=== PATIENT | male | born 1975 | race Caucasian/White ===

== ENCOUNTER 2017-01-13 13:27 | Day surgery (SDC) | payer OTHER ==
[2017-01-07 14:01] VITALS: BMI 32.3
[~2017-01-13 13:27] MED LIST: ceFAZolin 1,000 MG in SODIUM CHLORIDE 0.9% IRRIGATIO 250 ML IRRIGATION ONE; ceFAZolin IN SWFI 2 GM/20 ML SYRINGE IVP ONE
[2017-01-13] MEDS: SODIUM CHLORIDE 0.9% 1,000 ML IV SCH (13:50)
[2017-01-13] MEDS ORDERED: MIDAZOLAM 2 MG/2 ML VIAL ONE (16:43)
[2017-01-13] MEDS ORDERED: MIDAZOLAM 2 MG/2 ML VIAL IV ONE (16:46)
[2017-01-13] MEDS ORDERED: LIDOCAINE 1% INJ 10MG/ML (20 ML MDV) SQ ONE ×2 (16:48→17:13)
[2017-01-13] MEDS ORDERED: fentaNYL (PF) 50 MCG/ML 2 ML AMP ONE (16:48)
[2017-01-13] MEDS ORDERED: fentaNYL (PF) 50 MCG/ML 2 ML AMP IV ONE (16:49)
[2017-01-13] MEDS: LIDOCAINE 1% INJ 10MG/ML (20 ML MDV) SQ ONE ×2 (17:00→17:09)
[2017-01-13] MEDS ORDERED: ACETAMINOPHEN TAB 325 MG TAB PO PRN (17:44)
--- NOTE | 2017-01-13 18:02 | P.PCN ---
Preoperative Diagnosis: Patient underwent EP procedure under conscious sedation/moderate sedation, monitoring of the level of consciousness and physiologic parameters including but not limited to vital signs and oxygenation. Patient tolerated the procedure well without any acute complications. Start time: 1646 Stop time: 1740
--- NOTE | 2017-01-13 18:12 | PCN ---
PROCEDURE NOTE Mr. Arambula is a 41-year-old male patient who has a dual-chamber pacemaker implanted almost 11 years back for sick sinus syndrome, recurrent syncope. His device is at [facility] and he underwent dual chamber pacemaker generator change. DESCRIPTION OF PROCEDURE: Patient brought to the EP lab in a fasting state. Written informed consent was obtained prior to the procedure. The left shoulder area was prepped and draped as per protocol. 1% lidocaine was used for local anesthesia. A 3 cm incision was made parallel to the deltopectoral groove, about 1.5 cm medial to it. The incision was carried down to the level of the pectoralis muscle. A subfascial pocket was made. Hemostasis was assured. The pocket was fairly subcutaneous and new subfascial pocket was made more caudally and inferiorly. The device was explanted. The new device was implanted and the leads were interrogated. The atrial lead is a CapSureFix novus, model #5076 serial number [id number], P waves were 6.1 mV, pacing threshold 0.5 V at 0.4 milliseconds. Pacing impedance of 437 ohms. The RV lead is a Medtronic CapSureFix novus model #5076 serial number [id number]. R- waves 20 mV, pacing threshold 1 V at 0.4 milliseconds. Pacing impedance 491 ohms. The old generator explanted was a Medtronic model number A3534NC serial number [id number]. The new generator was a [employer], [address] model number L101 serial #[id number]. The leads and generator were then placed in the subfascial pocket. The wound was closed in 3 layers and dressed per protocol. RESULTS: 1. Successful dual chamber pacemaker generator change. 2. New subfascial pocket. The previous pocket was subcutaneous and very close to the clavicle. The new subfascial pocket was at the fascia level and it was well below the clavicle, more caudally located. MMODL / IJN: [id number] /
[2017-01-13] MEDS ORDERED: ACETAMINOPHEN IV (For NPO) 1,000 MG in EMPTY BAG 1 BAG IVPB ONE (18:30)
[2017-01-13] MEDS: PANTOPRAZOLE 40 MG TABLET PO SCH (19:08)
[2017-01-13] MEDS: ceFAZolin IN SWFI 2 GM/20 ML SYRINGE IVP SCH (21:36)
[2017-01-14] MEDS: HYDROcodone/APAP 5-325MG 1 EACH TAB PO PRN ×3 (04:45→13:53)
[2017-01-14] MEDS: ceFAZolin IN SWFI 2 GM/20 ML SYRINGE IVP SCH ×3 (04:45→16:31)
[2017-01-14 07:49] VITALS: RESP 18
[2017-01-14] MEDS: PANTOPRAZOLE 40 MG TABLET PO SCH (09:12)
[2017-01-14] MEDS: SODIUM CHLORIDE 0.9% 1,000 ML IV SCH (09:17)
[2017-01-14 12:05] VITALS: PULSE 56
[2017-01-14 15:21] VITALS: BP 118/67; TEMP 97.4
--- NOTE | 2017-01-14 18:26 | P.DS ---
Providers Attending physician: Fredi Calvillo Primary care physician: [facility] Course: Patient is doing well. Receiving IV antibiotics. No chest discomfort no shortness of breath. Lying comfortably in bed as well as ambulating in the room. Pacemaker site is healed well no bruising no hematoma no bleeding. Afebrile 97.4F, pulse rate in the 50s, respirations normal, blood pressure 118/ 67 mmHg Heart sounds are normal Breath sounds are normal Extremities warm no edema Impression Sick sinus syndrome Status post pacemaker implantation 11 years back, device with normal battery depletion status post pacemaker generator change yesterday Plan discharge home after completion of IV antibiotics and pacemaker clinic follow-up in about 1 week Patient Condition at Discharge: Stable Plan - Discharge Summary Discharge Rx Participant: Yes New Discharge Prescriptions: Continue RX: Omeprazole [PriLOSEC] 20 mg PO BID Discharge Medication List RX: Omeprazole [PriLOSEC] 20 mg PO BID 02/13/16 [History] Follow up Appointment(s)/Referral(s): Fredi Calvillo MD [STAFF PHYSICIAN] - 1 Week (Appointment made with device clinic for Friday @ 9:00am.) Patient Instructions/Handouts: Pacemaker Generator Change (DC) Activity/Diet/Wound Care/Special Instructions: PATIENT EDUCATION MATERIAL Instructions following a heart rhythm device implant. 1. Keep dressing DRY for ONE week. You may cover the area with Saran or Cling Wrap, prior to a shower. 2. The dressing will be removed after one week in the Device Clinic @ [facility]. Absorbable sutures were used to close the wound. 3. Avoid raising the [left] arm above the shoulder level. [1 week restriction] 4. Avoid arm movements, like backscratching, rubbing the head, or pulling on a cord. (1 weeks restriction) 5. Gentle range of motion movements of the shoulder, closest to the incision should be performed to avoid a frozen shoulder. (Pendulum exercises of the shoulder) 6. The opposite arm may be used freely. 7. Avoid driving for 7 days. 8. Avoid activities such as golfing, swimming, weed whacking, lifting more than 10 pounds weight, bowling, gymnastics and weight training/lifting. (6 weeks restriction) 9. Activities such as wood chopping with an axe, pull-ups in the gymnasium, power lifting, arc-welding, being close to home induction cooktops will always be a problem. In case of any problems, please call [facility], [place], @ [phone], Attention: Device Clinic Discharge Disposition: HOME SELF-CARE
== END 2017-01-14 16:50 | disposition home or self-care (01) ==
LOC: CATHEP 13:27 → 3OBS 17:48 → CATHEP 01-14 16:50
PROVIDERS: ATTEND Internal Medicine Clinical Cardiac Electrophysiology
DX: I49.5 Sick sinus syndrome (principal); Z45.010 Encounter for checking and testing of cardiac pacemaker pulse generator [battery]; R55 Syncope and collapse; F17.210 Nicotine dependence, cigarettes, uncomplicated; Z79.899 Other long term (current) drug therapy
CPT/HCPCS: 33228; C1785; J2250; J0690 ×3; J2001; J3010

== ENCOUNTER 2017-05-17 11:44 | Emergency (ER) | payer OTHER ==
[2017-05-17] MEDS ORDERED: PROPARACAINE 0.5% OPHTH DROPS 15 ML BTL BOTH EYES STA (12:20)
--- NOTE | 2017-05-17 12:21 | ED ---
General Adult HPI - General Chief complaint: Eye Problems Stated complaint: FB in eye Time Seen by Provider: 05/17/17 12:11 Source: patient, RN notes reviewed Mode of arrival: ambulatory Limitations: no limitations - History of Present Illness Initial comments: 41-year-old male presents to the emergency department for a chief complaint of right eye pain. Patient states he noticed it felt irritated and scratched this morning. Patient states he was working on a car with his friend last night and it possibly happened at that time. Patient states he applied a new bumper to her car. There was no rust on the bumper. He did not remove the old bumper. Patient went to [facility] today but they told him they could not remove it and he needed to come to the emergency department. Patient states he has no visual changes. Patient denies seeing any black spots in his vision. Patient denies any pain within the globe of the eye. He states it feels scratched. He tried to flush it out with contact solution but it would not dislodge. Patient states his tetanus is up-to-date and he had a shot in the past year. - Related Data Home Medications Medication Instructions Recorded Confirmed methylPREDNISolone [Medrol Dose See Taper PO DIRECTED 05/17/17 05/17/17 Pack] Previous Rx's Medication Instructions Recorded Tobramycin 0.3% Ophth Soln [Tobrex 1 drop RIGHT EYE Q6H 7 Days ml 05/17/17 0.3% Ophth Soln] Allergies Allergy/AdvReac Type Severity Reaction Status Date / Time adhesive tape Allergy Rash/Hives Verified 05/17/17 12:35 Review of Systems ROS Statement: Those systems with pertinent positive or pertinent negative responses have been documented in the HPI. ROS Other: All systems not noted in ROS Statement are negative. Past Medical History Past Medical History: GERD/Reflux, Hypertension, Musculoskeletal Disorder, Osteoarthritis (OA) Additional Past Medical History / Comment(s): See Dr Calvillo's H&P, bradycardia. Hx-"broken back" pt states high bp d/t back pain per physicians. History of Any Multi-Drug Resistant Organisms: None Reported Past Surgical History: Cholecystectomy, Pacemaker, Tonsillectomy Past Anesthesia/Blood Transfusion Reactions: No Reported Reaction Type of Cardiac Device: Permanent Pacemaker Device Placement Date:: 10/30 Past Psychological History: No Psychological Hx Reported Smoking Status: Current every day smoker Past Alcohol Use History: Occasional Past Drug Use History: None Reported - Past Family History Father Family Medical History: Hypertension Mother Family Medical History: CVA/TIA, Diabetes Mellitus, Hypertension Additional Family Medical History / Comment(s): CABG. General Exam Limitations: no limitations General appearance: alert, in no apparent distress Head exam: Present: atraumatic, normocephalic, normal inspection Eye exam: Present: PERRL, EOMI, other (There is a small black foreign body at about 4:00 on the outer aspect of the cornea.). Absent: scleral icterus, conjunctival injection, nystagmus, periorbital swelling, periorbital tenderness ENT exam: Present: normal exam, mucous membranes moist, TM's normal bilaterally Respiratory exam: Present: normal lung sounds bilaterally. Absent: respiratory distress, wheezes, rales, rhonchi, stridor Cardiovascular Exam: Present: regular rate, normal rhythm, normal heart sounds. Absent: systolic murmur, diastolic murmur, rubs, gallop, clicks Course Vital Signs 05/17/17 11:45 Temperature 97.0 F L Pulse Rate 86 Respiratory 20 Rate Blood Pressure 131/80 O2 Sat by Pulse 99 Oximetry Medical Decision Making - Medical Decision Making 41-year-old male presents to the emergency department for foreign body in the right cornea. Patient states he noticed his eye felt scratched and irritated this morning. He states he was working on a car bumper last night and it may have been from that. Patient tried flushing the right eye with contact solution but the object did not dislodge. Patient states he went to [facility] but they told him to come here. On exam there is a small black foreign body at about 4:00 in the right cornea. No rust ring noted. On exam EOMI and PERRLA bilaterally. Patient denies any visual changes or pain in the eye. He states it just feels scratched and irritated. The eye was numbed with proparacaine. Fluorescein stain and Wood's lamp was used to visualize any abrasions in the eye. There was a small abrasion below the cornea on the conjunctiva. A sterile Q-tip was used to remove the foreign body. The eye was then rechecked with fluoroscein stain which was unchanged. No rust ring noted on exam after foreign body removal. Patient had no change in vision after the foreign body was removed. He states his eye does feel a little better. Visual acuity was performed and was 2020 in both eyes. Patient was started on Tobrex in the emergency department he was also given a prescription for Tobrex to continue for 5 days. He is not to wear contacts for 1 week. He will follow up with ophthalmology in one to 2 days and return to the emergency department if symptoms worsen. Disposition Clinical Impression: Corneal foreign body Disposition: HOME SELF-CARE Condition: Good Instructions: Eye Foreign Body (ED) Additional Instructions: Please follow up with ophthalmology in one to 2 days. Please use Tobrex eyedrops as directed for 5-7 days in the right eye. Please do not use contacts for 1 week. Return to the emergency department if symptoms worsen or vision begins to change. Prescriptions: Tobramycin 0.3% Ophth Soln [Tobrex 0.3% Ophth Soln] 1 drop RIGHT EYE Q6H 7 Days ml Referrals: Baldev eWsley MD [Primary Care Provider] - 1-2 days Zoë Paulino MD [STAFF PHYSICIAN] - 1-2 days Time of Disposition: 12:56
[2017-05-17] MEDS ORDERED: TOBRAMYCIN 0.3% OPHTH DROPS 5 ML BTL RIGHT EYE STA (12:43)
[2017-05-17 13:07] VITALS: BP 121/62; PULSE 62; RESP 15; TEMP 98
== END 2017-05-17 13:09 | disposition home or self-care (01) ==
LOC: EC 11:44
DX: T15.01XA Foreign body in cornea, right eye, initial encounter (principal); M19.90 Unspecified osteoarthritis, unspecified site; F17.200 Nicotine dependence, unspecified, uncomplicated; Z95.0 Presence of cardiac pacemaker; Z79.52 Long term (current) use of systemic steroids; Z91.048 Other nonmedicinal substance allergy status
CPT/HCPCS: 65220; 99283

== ENCOUNTER 2019-11-21 22:48 | Observation (INO) | payer OTHER ==
[2019-11-21] MEDS ORDERED: ASPIRIN 81 MG PO STA (22:59)
--- NOTE | 2019-11-21 22:59 | ED ---
Chest Pain HPI - General Chief Complaint: Chest Pain Stated Complaint: Chest Pain Time Seen by Provider: 11/21/19 22:58 Source: patient, family Mode of arrival: wheelchair Limitations: no limitations - History of Present Illness Initial Comments: Bryan is an obese 44-year-old male with a history of bradycardia who has a pacemaker in place. Patient presents the ER today for evaluation of headache and chest pain. Patient reports he's been experiencing a severe headache for 3 days duration. He states that today he developed retrosternal chest pain r adiating to the left shoulder. She reports numbness and tingling in his left hand with this. He does note that yesterday at work when he was having a headache he was also having tingling in his left hand but no chest pain. Patient denies any cardiac history but states he is being treated for hypertension. Denies any family history of early cardiac disease. Denies any recent fevers, chills, cough or shortness of breath. - Related Data Home Medications Medication Instructions Recorded Confirmed methylPREDNISolone [Medrol Dose See Taper PO DIRECTED 05/17/17 05/17/17 Pack] Previous Rx's Medication Instructions Recorded Tobramycin 0.3% Ophth Soln [Tobrex 1 drop RIGHT EYE Q6H 7 Days ml 05/17/17 0.3% Ophth Soln] Allergies Allergy/AdvReac Type Severity Reaction Status Date / Time adhesive tape Allergy Rash/Hives Verified 11/21/19 22:53 Review of Systems ROS Statement: Those systems with pertinent positive or pertinent negative responses have been documented in the HPI. ROS Other: All systems not noted in ROS Statement are negative. EKG Findings - EKG Comments: EKG Findings:: EKG was obtained due to complaint of chest pain, EKG obtained at 2305, rate is 59 rhythm is sinus bradycardia there is normal axis, normal intervals, OH 162, QRS 96, QTC [address] elevations or depressions evidence of acute ischemia, infarction or arrhythmia. Repeat EKG was obtained to change in patient's mental status, repeat EKG was obtained 2320, rate 60 rhythm is normal sinus there is normal axis, normal intervals, OH 146, QRS 100, QTC 422 there are no acute ST elevations or depressions no evidence of acute ischemia, infarction or arrhythmia. Past Medical History Past Medical History: GERD/Reflux, Hypertension, Musculoskeletal Disorder, Osteoarthritis (OA) Additional Past Medical History / Comment(s): See Dr Calvillo's H&P, bradycardia. Hx-"broken back" pt states high bp d/t back pain per physicians. History of Any Multi-Drug Resistant Organisms: None Reported Past Surgical History: Cholecystectomy, Pacemaker, Tonsillectomy Past Anesthesia/Blood Transfusion Reactions: No Reported Reaction Type of Cardiac Device: Permanent Pacemaker Device Placement Date:: 10/30 Past Psychological History: No Psychological Hx Reported Smoking Status: Current every day smoker Past Alcohol Use History: Occasional Past Drug Use History: None Reported - Past Family History Father Family Medical History: Hypertension Mother Family Medical History: CVA/TIA, Diabetes Mellitus, Hypertension Additional Family Medical History / Comment(s): CABG. General Exam - General Exam Comments Initial Comments: Physical Exam GENERAL: Patient is well-developed and well-nourished. Patient is nontoxic and well- hydrated and is in no distress. HENT: Normocephalic, Atraumatic. EYES: PERRL, EOMI PULMONARY: Hyperventilating Unlabored respirations. No audible rales rhonchi or wheezing was noted. CARDIOVASCULAR: There is a regular rate and rhythm without any murmurs gallops or rubs. ABDOMEN: Soft and nontender with normal bowel sounds. SKIN: Skin is clear with no lesions or rashes and otherwise unremarkable. : Deferred NEUROLOGIC: Patient is alert and oriented x3. Moving all extremities spontaneously MUSCULOSKELETAL: Normal extremities with adequate strength and full range of motion. No lower extremity swelling or edema. No calf tenderness. PSYCHIATRIC: Anxious Limitations: no limitations Course Vital Signs 11/21/19 11/21/19 11/21/19 22:49 23:17 23:32 Temperature 97.8 F Pulse Rate 65 58 L 56 L Respiratory 18 36 H 32 H Rate Blood Pressure 140/98 149/91 O2 Sat by Pulse 99 98 95 Oximetry 11/21/19 11/22/19 11/22/19 23:51 01:07 01:43 Temperature 98 F Pulse Rate 57 L 50 L 64 Respiratory 18 17 18 Rate Blood Pressure 165/96 141/86 129/76 O2 Sat by Pulse 99 96 97 Oximetry Chest Pain [facility] The patient was seen and evaluated, history is obtained from the patient and wi fe at bedside 44-year-old male with 3 days of headache and one day of retrosternal chest pain, patient took a full dose aspirin prior to arrival in the emergency department Physical exam is unremarkable however cardiac workup with CT imaging to evaluate for dissection was placed Shortly after my evaluation nursing staff called staff back to the room for patient being reportedly unresponsive, patient was laying in bed with his eyes closed. Upon my evaluation he would flicker his eyes and look to the right but had a strong pulse, good oxygen saturations normal vital sign. Patient will be transported to CT immediately After CT I reevaluated the patient reported feeling quite woozy and did not like the way the morphine made him feel stated that he didn't want take that again Labs and imaging were unremarkable EKGs were nonischemic CT angiogram of the chest head and neck were unremarkable I discussed with the patient and at bedside that there are no acute findings today however we will plan to admit the patient for further evaluation Disposition Clinical Impression: Chest pain Disposition: ADMITTED IP TO THIS HOSP Condition: Stable Is patient prescribed a controlled substance at d/c from ED?: No
[2019-11-21] MEDS ORDERED: MORPHINE SULFATE 4 MG/ML SYRINGE IVP STA (23:04)
[2019-11-21 23:24] LABS: Glucose,Whole Blood 97 mg/dL (75-99)
[2019-11-21 23:40] LABS: Basophils # (A) 0.1 k/uL (0-0.2); Basophils % (A) 1 %; Eosinophils # (A) 0.4 k/uL (0-0.7); Eosinophils % (A) 4 %; HCT 44.9 % (39.0-53.0); HGB 15.3 gm/dL (13.0-17.5); Lymphocytes # (A) 3.5 k/uL (1.0-4.8); Lymphocytes % (A) 36 %; MCH 31.3 pg (25.0-35.0); MCHC 34.1 g/dL (31.0-37.0); MCV 91.5 fL (80.0-100.0); Mean Platelet Volume 6.8; Monocytes # (A) 0.6 k/uL (0-1.0); Monocytes % (A) 6 %; Neutrophils # (A) 4.9 k/uL (1.3-7.7); Neutrophils % (A) 51 %; Platelet Count 199 k/uL (150-450); RBC 4.91 m/uL (4.30-5.90); RDW 12.2 % (11.5-15.5); WBC 9.7 k/uL (3.8-10.6)
[2019-11-21 23:48] LABS: INR 0.9 (<1.2); Partial Thromboplastin Time 23.4 sec (22.0-30.0); Prothrombin Time 9.5 sec (9.0-12.0)
[2019-11-21 23:49] LABS: ALT 28 U/L (4-49); AST 30 U/L (17-59); African American GFR (CKD) >90 (>60 ml/min/1.73 sqM); Alkaline Phosphatase 57 U/L (38-126); Anion Gap 5 mmol/L; Blood Urea Nitrogen 13 mg/dL (9-20); Calcium 9.4 mg/dL (8.4-10.2); Carbon Dioxide 23 mmol/L (22-30); Chloride 108 mmol/L (98-107); Glucose 88 mg/dL (74-99); Magnesium 1.9 mg/dL (1.6-2.3); Non-African American GFR(CKD) >90 (>60 ml/min/1.73 sqM); Potassium 4.1 mmol/L (3.5-5.1); Sodium 136 mmol/L (137-145); Total Bilirubin 0.4 mg/dL (0.2-1.3); Total Protein 6.5 g/dL (6.3-8.2)
--- NOTE | 2019-11-22 00:02 | CT ---
EXAMINATION TYPE: CT brain wo con DATE OF EXAM: 11/21/2019 COMPARISON: 12/18/2009 HISTORY: headache CT DLP: 1092.80 mGycm Automated exposure control for dose reduction was used. Ventricles have normal size. There is no mass effect nor midline shift. There is no sign of intracran ial hemorrhage. The calvarium is intact. There is no evidence of cerebral edema. IMPRESSION: Negative unenhanced head CT scan. No change.
--- NOTE | 2019-11-22 00:14 | CT ---
EXAMINATION TYPE: CT angio chest DATE OF EXAM: 11/21/2019 COMPARISON: None HISTORY: RANGEL CT DLP: 828.10 mGycm Automated exposure control for dose reduction was used. CONTRAST: Performed with IV Contrast, patient injected with 90 mL of Isovue 370. There are 3-D post processed images. There is some patchy subsegmental atelectasis in the posterior lung christensen. There is no pulmonary con solidation. There is no evidence of a pulmonary mass. Heart is borderline enlarged. There is no peric ardial effusion. There are no hilar masses. There is no mediastinal adenopathy. Thoracic aorta is intact. There is no aneurysm or dissection. There is normal contrast opacification of the pulmonary arteries. There are no filling defects. There is some spurring in the thoracic spine. I see no bony destructive process. Sternum is intact IMPRESSION: No evidence of pulmonary embolism. Mild subsegmental atelectasis.
--- NOTE | 2019-11-22 00:17 | CT ---
EXAMINATION TYPE: CODE STROKE: CTA head neck DATE OF EXAM: 11/21/2019 COMPARISON: None HISTORY: headache CT DLP: 889.30 mGycm Automated exposure control for dose reduction was used. CONTRAST: Performed with IV Contrast, patient injected with 65 mL of Isovue 370. There are 3-D post processed images. There is normal branching pattern of the great vessels on the aortic arch. There is bilateral arteria l flow in the subclavian arteries. There is arterial flow in the common internal and external carotid arteries. There is wide patency of the carotid artery bifurcations. There is minimal plaque at the l eft carotid artery bifurcation. There is no evidence of any significant arterial stenosis. There is b ilateral arterial flow in the vertebral arteries. Right vertebral artery is larger than the left. The re is no evidence of carotid or vertebral artery aneurysm or dissection. There is arterial flow in the vertebrobasilar artery system. There is arterial flow in the anterior m iddle and posterior cerebral arteries. There is normal contrast opacification of the venous sinuses. There is no evidence of intracranial aneurysm or neovascularity. There is no mass effect. I see no ev idence of intracranial arterial stenosis. IMPRESSION: Negative CT angiogram of the neck. Negative CT angiogram of the brain.
[2019-11-22] MEDS ORDERED: NITROGLYCERIN SL TABS 0.4 MG TAB SUBLINGUAL PRN (00:40)
[2019-11-22] MEDS ORDERED: IBUPROFEN 600 MG TAB PO STA (01:33)
--- NOTE | 2019-11-22 01:57 | P.HPIM ---
History of Present Illness H&P Date: 11/22/19 The patient is a 44-year-old male with a PMH of hypertension, sinus bradycardia status post pacemaker placement, chronic left arm weakness who presented to the ED with complaints of chest pain and dizziness. The history supplemented by his at the bedside. Patient reports that over the past 1-2 days, he has felt somewhat more lethargic and that at around 7 PM earlier today he developed some lightheadedness along with substernal sharp pressure with radiation to the left arm. The pain was 6 out of 10, with no clear alleviating or exacerbating features. He reports that the dizziness was brought on with standing up. The pain had resolved shortly after arrival to the emergency room. While in the emergency room, the patient had episodes where he was "unresponsive" as per the , lasting only a few seconds. The patient was laying in bed with his eyes open, not responding to verbal cues. The notes that the patient has had a long-standing history of similar episodes where he would space-out and his eyes would move erratically. Patient denied associated shaking, urinary incon tinence, bladder incontinence, or tongue biting during these episodes. The notes that the last time this occurred was roughly a month ago. The patient has never been diagnosed with seizure disorder, though has seen a neurologist in the past for chronic left hand numbness. She notes that after these episodes, the patient is often confused and lethargic. The patient also endorsed mild chronic shortness of breath which she attributes to his smoking and obesity. Denied cough, fever, chills, abdominal pain, nausea, vomiting, or diarrhea. In the emergency room a brain CT and a chest CTA were unremarkable with EKG showing sinus bradycardia at 59 bpm. laboratory evaluation was reviewed. Review of Systems Pertinent positives and negatives as discussed in HPI, a complete review of systems was performed and all other systems are negative. Past Medical History Past Medical History: GERD/Reflux, Hypertension, Musculoskeletal Disorder, Osteoarthritis (OA) Additional Past Medical History / Comment(s): See Dr Calvillo's H&P, bradycardia. Hx-"broken back" pt states high bp d/t back pain per physicians. History of Any Multi-Drug Resistant Organisms: None Reported Past Surgical History: Cholecystectomy, Pacemaker, Tonsillectomy Past Anesthesia/Blood Transfusion Reactions: No Reported Reaction Type of Cardiac Device: Permanent Pacemaker Device Placement Date:: 10/30 Past Psychological History: No Psychological Hx Reported Smoking Status: Current every day smoker Past Alcohol Use History: Occasional Past Drug Use History: None Reported - Past Family History Father Family Medical History: Hypertension Mother Family Medical History: CVA/TIA, Diabetes Mellitus, Hypertension Additional Family Medical History / Comment(s): CABG. Medications and Allergies Home Medications Medication Instructions Recorded Confirmed Type Tobramycin 0.3% Ophth Soln [Tobrex 1 drop RIGHT EYE Q6H 7 Days ml 05/17/17 Rx 0.3% Ophth Soln] methylPREDNISolone [Medrol Dose See Taper PO DIRECTED 05/17/17 05/17/17 History Pack] Allergies Allergy/AdvReac Type Severity Reaction Status Date / Time adhesive tape Allergy Rash/Hives Verified 11/21/19 22:53 Physical Exam Vitals: Vital Signs Temp Pulse Resp BP Pulse Ox 11/22/19 01:07 50 L 17 141/86 96 11/21/19 23:51 57 L 18 165/96 99 11/21/19 23:32 56 L 32 H 149/91 95 11/21/19 23:17 58 L 36 H 140/98 98 11/21/19 22:49 97.8 F 65 18 99 Intake and Output 11/21/19 11/21/19 11/22/19 14:59 22:59 06:59 Other: Weight 111.13 kg General: non toxic, no distress, appears at stated age, obese Derm: no unusual rashes/lesions no unusual ecchymoses, warm, dry Head: atraumatic, normocephalic, symmetric Eyes: EOMI, no lid lag, anicteric sclera, pupils equal round reactive to light ENT: Nose and ears atraumatic, no thrush, no pharyngeal erythema, no tongue bites Neck: No thyromegaly, no cervical lymphadenopathy, trachea midline, supple Mouth: no lip lesion, mucus membranes moist Cardiovascular: S1S2 reg, no murmur, positive posterior tibial pulse bilateral, no edema, capillary refill less than 2 seconds Lungs: CTA bilateral, no rhonchi, no rales , no accessory muscle use Abdominal: soft, nontender to palpation, no guarding, no appreciable organomegaly, normal bowel sounds Ext: no gross muscle atrophy, muscle strength 3+ of left upper extremity, strength 5 out of 5 elsewhere, no contractures, Neuro: CN II-XI grossly intact, diminished sensation to light touch on the left hand, finger to nose within normal limits, Psych: Alert, oriented, appropriate affect Results CBC & Chem 7: 11/21/19 23:15 11/21/19 23:21 Labs: Abnormal Lab Results - Last 24 Hours (Table) 11/21/19 Range/Units 23:21 Sodium 136 L (137-145) mmol/L Chloride 108 H (98-107) mmol/L Assessment and Plan Plan: Chest pain, rule out ACS -Cardiology consult -Trend troponin -Cardiac monitoring -Aspirin and statin -Interrogate pacemaker Episodes of unresponsiveness, possible seizure disorder -Neurology consult -Fall and seizure precautions -Urine toxicology screen -Patient reports that his left arm has been weak for several years -Neurochecks -Start Keppra with loading dose Hypertension -Continue home meds DVT prophylaxis -Heparin subq The patient is admitted with an anticipated less than 2 midnight stay for evaluation of chest pain CODE STATUS: Full Code Discussed with: Patient, Anticipated discharge date: 11/[address]: Home A total of 40 minutes was spent on the care of this complex patient more than 50% of the time was spent in counseling and care coordination.
[2019-11-22] MEDS ORDERED: ATORVASTATIN 80 MG TAB PO STA (01:58)
[2019-11-22 02:51] LABS: Amphetamine Screen,Urine Not Detected (NotDetected); Barbiturate Screen,Urine Not Detected (NotDetected); Benzodiazepines Screen,Urine Not Detected (NotDetected); Cocaine Screen,Urine Not Detected (NotDetected); Methadone Screen, Urine Not Detected (NotDetected); Opiate Screen,Urine Detected (NotDetected); Oxycodone Screen, Urine Not Detected (NotDetected); Phencyclidine Screen,Urine Not Detected (NotDetected); Tricyclic Antidepressant,Urine Not Detected (NotDetected); Urn Cannabinoid Scrn Not Detected (NotDetected)
[2019-11-22] MEDS ORDERED: levETIRAcetam IV 1,000 MG in SALINE 1 100ML.BAG IVPB STA (03:21)
[2019-11-22] MEDS: HEPARIN SODIUM,PORCINE 5,000 UNIT/ML 1 ML VIAL SQ SCH ×2 (08:23→17:37)
[2019-11-22] MEDS: levETIRAcetam 500 MG TAB PO SCH ×2 (08:23→20:46)
[2019-11-22] MEDS ORDERED: IBUPROFEN 600 MG TAB PO PRN (09:35)
--- NOTE | 2019-11-22 09:47 | P.CRDCN ---
History of Present Illness History of present illness: HISTORY OF PRESENTING ILLNESS This is a pleasant 44-year-old male past medical history significant for hypertension, sick sinus syndrome status post permanent pacemaker implantation [employer], neurocardiogenic syncope and chronic nicotine dependence. He follows in the office with Dr. Calvillo. We have been asked to see in consultation for chest pain. He presented to the emergency department with symptoms of headache that has been going on for 3 days. He states he also has numbness and tingling in the left hand and a sharp pain in the left precordial region at times. He has been experiencing syncopal unresponsive episodes over the previous 3 weeks. He states the first one happened 3 weeks ago his came home and found him unresponsive. He had 2 episodes similar since coming to the hospital once in the ER and once on the observation unit last night. According to the nursing staff his eyes are closed and he would only respond to sternal rub. The patient denies symptoms of dizziness or lightheadedness. He has no chest pain, shortness of breath or palpitations prior to these episodes or after he wakes up. He denies loss of bowel or bladder control. According to staff he has no tonic clonic seizure type activity. Most recent pacemaker interrogation May 2019 revealed normal DDD pacemaker function, no tachyarrhythmias noted. Telemetry tracings throughout hospitalization have been unremarkable. DIAGNOSTICS EKG reveals sinus bradycardia heart rate of 59. CT of the brain is negative. CTA is negative for pulmonary embolism. Thoracic aorta is intact with no aneurysm or dissection. CT angiogram of the neck and brain is negative. Laboratory reviewed, CBC unremarkable, sodium 136, potassium 4.1, creatinine 0.98, magnesium 1.9, cardiac enzymes negative 3, NT proBNP 59. Current cardiac medications include lisinopril 5 mg daily. Most recent stress test performed in the office June 2018 revealed no EKG evidence of ischemia. REVIEW OF SYSTEMS At the time of my exam: CONSTITUTIONAL: Denies fever or chills. CARDIOVASCULAR: Denies chest pain, shortness of breath, orthopnea, PND or palpitations. RESPIRATORY: Denies cough. GASTROINTESTINAL: Denies abdominal pain, diarrhea, constipation, nausea or vomiting. MUSCULOSKELETAL: Denies myalgias. NEUROLOGIC: Denies numbness, tingling or weakness. ENDOCRINE: Denies fatigue, weight change, polydipsia or polyurina. GENITOURINARY: Denies burning, hematuria or urgency with micturation. HEMATOLOGIC: Denies history of anemia or bleeding. PHYSICAL EXAMINATION Blood pressure 121/77 heart rate 51 afebrile and maintaining oxygen saturation on room air. CONSTITUTIONAL: No apparent distress. HEENT: Head is normocephalic. Pupils are equal, round. Sclerae anicteric. Mucous membranes of the mouth are moist. No JVD. No carotid bruit. CHEST EXAMINATION: Lungs are clear to auscultation. No chest wall tenderness is noted on palpation or with deep breathing. HEART EXAMINATION: Regular rate and rhythm. S1, S2 heard. No murmurs, gallops or rub. ABDOMEN: Soft, nontender. Positive bowel sounds. EXTREMITIES: 2+ peripheral pulses, no lower extremity edema and no calf tenderness. NEUROLOGIC EXAMINATION: Patient is awake, alert and oriented x3. ASSESSMENT Syncope Chest pain, atypical. An acute coronary event has been ruled out. No EKG evidence of ischemia. Hypertension Sick sinus syndrome status post permanent pacemaker implantation Chronic nicotine dependence PLAN An acute event has been ruled out. Neurology will evaluate the patient today for the possibility of seizures. He has been initiated on anti-seizure medications. Obtain 2D echocardiogram and doppler study to assess cardiac structure and function. Thank you kindly for this consultation. Nurse Practitioner note has been reviewed, I agree with a documented findings and plan of care. Patient was seen and examined. Past Medical History Past Medical History: GERD/Reflux, Hypertension, Musculoskeletal Disorder, Osteoarthritis (OA) Additional Past Medical History / Comment(s): See Dr Calvillo's H&P, bradycardia. Hx-"broken back" pt states high bp d/t back pain per physicians. History of Any Multi-Drug Resistant Organisms: None Reported Past Surgical History: Cholecystectomy, Pacemaker, Tonsillectomy Past Anesthesia/Blood Transfusion Reactions: No Reported Reaction Type of Cardiac Device: Permanent Pacemaker Device Placement Date:: 10/30 Past Psychological History: No Psychological Hx Reported Smoking Status: Current every day smoker Past Alcohol Use History: Occasional Past Drug Use History: None Reported - Past Family History Father Family Medical History: Hypertension Mother Family Medical History: CVA/TIA, Diabetes Mellitus, Hypertension Additional Family Medical History / Comment(s): CABG. Medications and Allergies Home Medications Medication Instructions Recorded Confirmed Type Ibuprofen [Motrin Ib] 200 - 600 mg PO HS PRN 11/22/19 11/22/19 History Ibuprofen [Motrin Ib] 800 mg PO QAM 11/22/19 11/22/19 History Omeprazole [PriLOSEC] 20 mg PO BID 11/22/19 11/22/19 History lisinopriL [Zestril] 5 mg PO DAILY 11/22/19 11/22/19 History Allergies Allergy/AdvReac Type Severity Reaction Status Date / Time adhesive tape Allergy Rash/Hives Verified 11/22/19 08:51 Physical Exam Vitals: Vital Signs Temp Pulse Pulse Resp BP BP Pulse Ox 11/22/19 02:44 97.7 F 46 L 17 135/86 96 11/22/19 01:43 98 F 64 18 129/76 97 11/22/19 01:07 50 L 17 141/86 96 11/21/19 23:51 57 L 18 165/96 99 11/21/19 23:32 56 L 32 H 149/91 95 11/21/19 23:17 58 L 36 H 140/98 98 11/21/19 22:49 97.8 F 65 18 99 Intake and Output 11/21/19 11/22/19 11/22/19 22:59 06:59 14:59 Other: Voiding Method Toilet Weight 111.13 kg 111.13 kg Results 11/21/19 23:15 11/21/19 23:21 Cardiac Enzymes 11/21/19 11/21/19 11/22/19 Range/Units 23:21 23:21 02:25 AST 30 (17-59) U/L Troponin I <0.012 <0.012 (0.000-0.034) ng/mL 11/22/19 Range/Units 05:55 AST (17-59) U/L Troponin I <0.012 (0.000-0.034) ng/mL Coagulation 11/21/19 Range/Units 23:21 PT 9.5 (9.0-12.0) sec APTT 23.4 (22.0-30.0) sec CBC 11/21/19 Range/Units 23:15 WBC 9.7 (3.8-10.6) k/uL RBC 4.91 (4.30-5.90) m/uL Hgb 15.3 (13.0-17.5) gm/dL Hct 44.9 (39.0-53.0) % Plt Count 199 (150-450) k/uL Comprehensive Metabolic Panel 11/21/19 Range/Units 23:21 Sodium 136 L (137-145) mmol/L Potassium 4.1 (3.5-5.1) mmol/L Chloride 108 H (98-107) mmol/L Carbon Dioxide 23 (22-30) mmol/L BUN 13 (9-20) mg/dL Creatinine 0.98 (0.66-1.25) mg/dL Glucose 88 (74-99) mg/dL Calcium 9.4 (8.4-10.2) mg/dL AST 30 (17-59) U/L ALT 28 (4-49) U/L Alkaline Phosphatase 57 (38-126) U/L Total Protein 6.5 (6.3-8.2) g/dL Albumin 4.0 (3.5-5.0) g/dL Current Medications Generic Name Dose Route Start Last Admin Trade Name Freq PRN Reason Stop Dose Admin Aspirin 325 mg 11/23/19 09:00 Aspirin 325 Mg Tab PO DAILY NOEL Atorvastatin Calcium 80 mg 11/22/19 21:00 Atorvastatin 80 Mg Tab PO HS NOEL Heparin Sodium (Porcine) 5,000 unit 11/22/19 08:00 Heparin Sodium,Porcine 5,000 Unit/Ml 1 Ml Vial SQ Q8HR NOEL Levetiracetam 500 mg 11/22/19 09:00 Levetiracetam 500 Mg Tab PO Q12HR NOEL Nitroglycerin 0.4 mg 11/22/19 00:40 Nitroglycerin Sl Tabs 0.4 Mg Tab SUBLINGUAL Q5M PRN Chest Pain Intake and Output 11/21/19 11/22/19 11/22/19 22:59 06:59 14:59 Other: Voiding Method Toilet Weight 111.13 kg 111.13 kg 11/21/19 23:15 11/21/19 23:21
--- NOTE | 2019-11-22 10:45 | ECHOF ---
Referral Reason:chest pain MEASUREMENTS -------- HEIGHT: 152.4 cm WEIGHT: 111.1 kg BP: RVIDd: 3.3 cm (< 3.3) IVSd: 1.2 cm (0.6 - 1.1) LVIDd: 4.1 cm (3.9 - 5.3) LVPWd: 1.4 cm (0.6 - 1.1) IVSs: 1.5 cm LVIDs: 3.0 cm LVPWs: 1.3 cm Ao Diam: 3.2 cm (2.0 - 3.7) AV Cusp: 1.9 cm (1.5 - 2.6) MV EXCURSION: 16.963 mm (> 18.000) MV EF SLOPE: 103 mm/s (70 - 150) EPSS: 0.4 cm MV E Yusef: 0.91 m/s MV DecT: 205 ms MV A Yusef: 0.68 m/s MV E/A Ratio: 1.33 RAP: 5.00 mmHg RVSP: 24.79 mmHg FINDINGS -------- Paced rhythm. This was a technically adequate study. The left ventricular size is normal. There is mild concentric left ventricular hypertrophy. Overa ll left ventricular systolic function is low-normal with, an EF between 50 - 55 %. Left ventricular fillimg pressure cannot be estimated due to paced rhythm. The right ventricle is normal in size. The left atrial size is normal. The right atrial size is normal. The aortic valve is trileaflet, and appears structurally normal. No aortic stenosis or regurgitation. Mild mitral regurgitation is present. No regurgitation noted Right ventricular systolic pressure is normal at < 35 mmHg. There is no pulmonic regurgitation present. The aortic root size is normal. There is no pericardial effusion. CONCLUSIONS -------- 1. This was a technically adequate study. 2. The left ventricular size is normal. 3. There is mild concentric left ventricular hypertrophy. 4. Overall left ventricular systolic function is low-normal with, an EF between 50 - 55 %. 5. Left ventricular fillimg pressure cannot be estimated due to paced rhythm. 6. The right ventricle is normal in size. 7. The left atrial size is normal. 8. The right atrial size is normal. 9. Mild mitral regurgitation is present. 10. No regurgitation noted 11. There is no pulmonic regurgitation present. 12. There is no pericardial effusion. SOFTWARE DESIGN MANAGER: Brittany Cervantes RDCS
--- NOTE | 2019-11-22 12:10 | P.CNNES ---
History of Present Illness Consult date: 11/22/19 Requesting physician: Anam Woodard Reason for Consult: suspected seizure History of Present Illness: This is a 44-year-old right-handed gentleman with medical history of bradycardia status post pacemaker, hypertension presented to the emergency department on 11/21/2019 for chest pain. According to the patient for last 3-4 days he's been having and new onset headache that is over the frontal parietal region bilaterally. He says the headaches are a throbbing headache, did then 5- 6/10 and that there would last about 45 hours usually only in the mornings. He did feel like he had some watery eyes bilaterally. He denies any radiation to the headache. He denies any photophobia, phonophobia or anything to be in a da rk quiet place. He has and one of the episodes and nausea but no vomiting. He denies any pain with moving of the eyes. Denies any rhinorrhea. Denies any fever. He said that yesterday around 3:00 in the morning his headache was about 12/10 and it was a throbbing headache a currently it's 10 over 10. He feels there is a bump on the right side of the head (right temporal region), feels its hard over the last 3-4 days. With these headaches there is no exacerbation or alleviating factor. He has been taken Motrin 200 mg about 8-12 pills per the last 3 days and he feels like minimally they help. For last 1-2 days the patient has felt somewhat more lethargic and around 7 PM the day on 11/21/2019 he developed lightheadedness along with substernal sharp pressure with radiation to the left arm. There is no clear alleviating or exacerbating features. He did have dizziness upon standing up. The pain resolved upon coming to the emergency department. While in the emergency department the patient had an episode where he was unresponsive at a per his and lasting few seconds. The patient was lying in bed with eyes open, not responding to verbal cues and his eyes would move erratically. Patient does not have any shaking of extremities associated with these episodes, urinary inc ontinence or bladder incontinence. Also there is no tongue biting with these episodes. Last episode prior to the ED episode was a month ago. He was never diagnosed with seizure. She does follow up with a neurologist regarding his chronic left hand numbness. Per the patient's nurse the patient had an episode of unresponsiveness overnight, unsure of the duration. The patient received IV Keppra 1 g dose at 3:21 am on 11/22/19. Then was started on Keppra standing dose of 500 mg every 12 hours by the primary team. Workup in the hospital consisted of: CT of the head which was reported as negative unenhanced head CT scan. I personally reviewed the CT of the head and I didn't see any acute ischemia or hemorrhage. There is no encephalomalacia that is appreciable. EKG was reported as sinus bradycardia. Ventricular rate of 59. 2-D echo was reported as left ventricular size is normal. Mild concentric left ventricular hypertrophy. Ejection fraction of 50-55%. Left atrial size is normal. Per the patient's 's patient has been having episodes of unresponsiveness for past 10-12 years. The patient stated that the prior to these unresponsive episodes she would have a headache and his eyes would wander around bilaterally. Then he would be unresponsive lasting few seconds to a few minutes. Last episode was about 2 weeks ago. During these episodes the patient is unresponsive. There is no jerking episodes there is no urinary bowel incontinence. There is no tongue bites. After the episode the patient regains consciousness quickly for the most part per his . The patient denies recall these episodes. Prior to that 2 weeks ago she feels like the last episode was long time and she can't remember given a year ago. She is not sure if the patient's having these episodes while he is asleep. He had EEG (years ago) at different hospital and the episode was captured on EEG but no seizure correlation. She thinks that the patient was started on antiepileptic drugs in the past, she doesn't recall what the name of the medication. And that she's not sure of these episodes help or not but she said that this was long time ago it's been years. Regarding the patient's history he said it was normal vaginal delivery at, [facility] and there is no complication. There is no family history of seizures. The patient does see a chiropractor for right shoulder pain and he had his neck cracked in the last couple weeks. Review of Systems Review of system: The 12 point system was reviewed and apparent positive and negative per HPI. Past Medical History Past Medical History: GERD/Reflux, Hypertension, Musculoskeletal Disorder, Osteoarthritis (OA) Additional Past Medical History / Comment(s): See Dr Calvillo's H&P, bradycardia. Hx-"broken back" pt states high bp d/t back pain per physicians. History of Any Multi-Drug Resistant Organisms: None Reported Past Surgical History: Cholecystectomy, Pacemaker, Tonsillectomy Past Anesthesia/Blood Transfusion Reactions: No Reported Reaction Type of Cardiac Device: Permanent Pacemaker Device Placement Date:: 10/30 Past Psychological History: No Psychological Hx Reported Smoking Status: Current every day smoker Past Alcohol Use History: Occasional Past Drug Use History: None Reported - Past Family History Father Family Medical History: Hypertension Mother Family Medical History: CVA/TIA, Diabetes Mellitus, Hypertension Additional Family Medical History / Comment(s): CABG. Medications and Allergies Home Medications Medication Instructions Recorded Confirmed Type Ibuprofen [Motrin Ib] 200 - 600 mg PO HS PRN 11/22/19 11/22/19 History Ibuprofen [Motrin Ib] 800 mg PO QAM 11/22/19 11/22/19 History Omeprazole [PriLOSEC] 20 mg PO BID 11/22/19 11/22/19 History lisinopriL [Zestril] 5 mg PO DAILY 11/22/19 11/22/19 History Allergies Allergy/AdvReac Type Severity Reaction Status Date / Time adhesive tape Allergy Rash/Hives Verified 11/22/19 08:51 Physical Examination - Vital Signs Vital Signs: Vital Signs Temp Pulse Pulse Resp BP BP Pulse Ox 11/22/19 08:17 97.9 F 51 L 14 121/77 95 11/22/19 02:44 97.7 F 46 L 17 135/86 96 11/22/19 01:43 98 F 64 18 129/76 97 11/22/19 01:07 50 L 17 141/86 96 11/21/19 23:51 57 L 18 165/96 99 11/21/19 23:32 56 L 32 H 149/91 95 11/21/19 23:17 58 L 36 H 140/98 98 11/21/19 22:49 97.8 F 65 18 99 Intake and Output 11/21/19 11/22/19 11/22/19 22:59 06:59 14:59 Other: Voiding Method Toilet Weight 111.13 kg 111.13 kg GENERAL: The patient is lying in bed and is in acute distress. HENT: Small circular, hard lesion over the right superior temporal region. CHEST: The heart rate is regular rate rhythm. No murmurs to auscultation. LUNG: Clear to auscultation bilaterally no wheezing noted throughout. Not labored breathing. ABDOMEN/GI: Bowel sounds present in all 4 quadrants. No tenderness to palpation throughout. NEUROLOGICAL: Higher mental function: The patient is awake, alert, oriented to self, place and time. Patient is following commands. No aphasia and no neglect. Cranial nerves: The pupils are round, equal and reactive to light and accommodation. Visual christensen are full to confrontation throughout. Extraocular movement is intact no nystagmus is noted. Facial sensation is normal to touch throughout. The facial strength is normal throughout. Hearing is normal bilaterally to hand rub. Tongue is midline and moved dayw-ei-ftar without any difficulty. No dysarthria is noted. Shoulder shrug is normal bilaterally. Motor: The strength is 5 over 5 throughout. Normal tone and bulk. Cerebellum: Normal finger to nose bilaterally. Sensation: Sensation is normal to touch throughout. Reflexes (right/left): 2+ throughout. Plantars are downgoing bilaterally. Results AST of 30, ALP of 28. Urine drug screen was positive for opiates. - Laboratory Findings CBC and BMP: 11/21/19 23:15 11/21/19 23:21 Abnormal Lab Findings: Abnormal Labs 11/21/19 11/22/19 23:21 02:33 Sodium 136 L Chloride 108 H Urine Opiates Screen Detected H Assessment and Plan Assessment: Chronic Episodes of unresponsiveness. Possible seizure. Cannot rule out cardiac etiology. Left hand weakness Cephalgia over the bilateral fronto-parietal region Small bump over the right temporal region Substernal left chest pain Chronic left hand numbness Hypertension Plan: Patient was started on Keppra 500 mg twice a day by the primary team and it's to be continued. I ordered routine EEG. If unable to capture these unresponsive episodes on the routine EEG then I would recommend long-term EEG as an outpatient. Per the patient's she said that the patient had a routine EEG many years back and and had an episode of unre sponsiveness while he had a routine EEG and and there were told that this didn't seem like a seizure. Patient never had long-term EEG in the past. Continue cardiac monitoring. CTA of head and neck were reported as unremarkable. Regarding MRI the brain if it's permissible I would like to get it within without contrast to rule out any lesions seen. Patient does have a pacemaker, so the will find out if it's compatible or not. I'll also check with our cardiology team determine whether it's compatible. Regarding the patient left hand weakness and he states that it's new episode this MRI of the brain will help us determine any lesion that would explain this. We'll defer management of the chest pain to the cardiology team. Upon discharge the patient needs to follow up with the neurology team as outpatient. The was discussed with the patient and his . Thank you for the consult. Je Bean M.D. Neuro-hospitalist Time with Patient: Greater than 30
[2019-11-22] MEDS: lisinopriL 5 MG TAB PO SCH (12:49)
[2019-11-22] MEDS: ACETAMINOPHEN TAB 325 MG TAB PO PRN ×2 (14:05→20:49)
[2019-11-22] MEDS ORDERED: NICOTINE POLACRILEX 2 MG GUM BUCCAL PRN (14:45)
--- NOTE | 2019-11-22 15:36 | P.PN ---
Subjective Progress Note Date: 11/22/19 Principal diagnosis: chest pain and dizziness Patient is a 44-year-old male for history of hypertension, GERD, bradycardia status post permanent pacemaker implantation, and chronic left arm weakness who presented to the emergency department with complaints of chest pain and dizzi ness. In the emergency department he underwent an extensive evaluation. His initial EKG showed sinus bradycardia at a rate of 59. CT of the head showed no acute process, CT angiogram of the neck and brain is negative, CTA of the chest showed no evidence of pulmonary embolism. He is admitted for stroke chest pain rule out. Troponin remained negative. At approximately 3 in the morning the patient had an episode of unresponsiveness witnessed by the nurse there was concern for Seizure. He Was Keppra Loaded and Started on Oral Keppra. He was seen by cardiology and underwent an echocardiogram which was essentially unremarkable and demonstrated an ejection fraction of 50-55%. He was seen by neurology who was concern for possible Janeth or and recommended EEG and possible long-term EEG as an outpatient. Unfortunately we are unable to obtain an MRI secondary to patient's permanent pacemaker. Patient seen and examined at bedside with present. He is feeling very tired, no chest pain, no shortness of breath. General: Non toxic, no distress, appears at stated age Derm: warm, dry Head: atraumatic, normocephalic, symmetric Eyes: EOMI, no lid lag, anicteric sclera Mouth: no lip lesion, mucus membranes moist Cardiovascular: S1S2 reg, no murmur, positive posterior tibial pulse bilateral, Lungs: CTA bilateral, no rhonchi, no rales , no accessory muscle use Abdominal: soft, nontender to palpation, no guarding, no appreciable organomegaly Ext: no gross muscle atrophy, no edema, no contractures Neuro: CN II-XI grossly intact, no focal neuro deficits Psych: Alert, oriented, appropriate affect Episode of unresponsiveness -Chronic and intermittent -Neurology recommendations, concern for possible seizure, if this EEG unrevealing then outpatient 24 hour EEG -Continue with Keppra -Await EEG -Outpatient neurology follow-up Chest pain -Acute coronary event ruled out -Echocardiogram with preserved ejection fraction and no signs of wall motion abnormalities -Cardiology recommendations appreciated -Outpatient follow-up with Dr. Rodriguez Hypertension, controlled -Controlled -Continue with lisinopril Tobacco abuse -Cessation -Nicotine replacement DVT prophylaxis: Heparin Discussed with: Patient, nursing Anticipated discharge: home Anticipated discharge place: in AM A total of 35 minutes was spent on the care of this complex patient more than 50% of the time was spent in counseling and care coordination. Objective - Vital Signs Vital signs: Vital Signs Temp 97.9 F 11/22/19 08:17 Pulse 51 L 11/22/19 08:17 Resp 14 11/22/19 08:17 BP 121/77 11/22/19 08:17 Pulse Ox 95 11/22/19 08:17 Intake & Output 11/21/19 11/22/19 11/22/19 18:59 06:59 18:59 Weight 111.13 kg Other: Voiding Method Toilet - Labs CBC & Chem 7: 11/21/19 23:15 11/21/19 23:21 Labs: Abnormal Lab Results - Last 24 Hours (Table) 11/21/19 11/22/19 Range/Units 23:21 02:33 Sodium 136 L (137-145) mmol/L Chloride 108 H (98-107) mmol/L Urine Opiates Screen Detected H (NotDetected)
--- NOTE | 2019-11-22 16:28 | EEG ---
ELECTROENCEPHALOGRAM REPORT DATE OF SERVICE: 11/22/2019 CLINICAL HISTORY: This is a 44-year-old gentleman with history of bradycardia, status post pacemaker that presented to the hospital because of chest pain. Patient also continues to have episodes of loss of consciousness for the past 10-12 years, and his most recent episode was during this hospital stay overnight today. This video EEG is obtained to evaluate for seizure and epileptiform activity. RELEVANT MEDICATION: The patient is on Keppra. EEG TYPE: A routine 21 channel EEG was performed with video using the 10-20 electrode placement system. DESCRIPTION: Wakefulness, drowsiness and stage 2 sleep are obtained. During wakefulness, there is a posterior dominant rhythm of low voltage that is well modulated of 9 to 9.5 hertz. Activity, symmetrically. During drowsiness, there is slowing and attenuation of the background activity. During stage 2 sleep, there are sleep spindles and K complexes. INTERICTAL AND ICTAL: None. ACTIVATION PROCEDURE: Photic stimulation did not evoke a posterior driving response. Hyperventilation was not performed because of the patient clinical history. CLINICAL INTERPRETATION: This is a normal routine awake, drowsy, and asleep EEG. There is no focal slowing, epileptiform discharges, or seizure activity during this routine EEG. Clinical correlation is recommended. MMODL / IJN: [id number] / SEAMUS
[2019-11-22] MEDS ORDERED: ATORVASTATIN 80 MG TAB PO SCH (21:00)
[2019-11-23] MEDS: HEPARIN SODIUM,PORCINE 5,000 UNIT/ML 1 ML VIAL SQ SCH ×2 (00:21→09:06)
[2019-11-23 03:06] LABS: Cholesterol 125 mg/dL (<200); HDL Cholesterol 28 mg/dL (40-60); LDL Cholesterol,Calculated 81 mg/dL (0-99); Triglycerides 78 mg/dL (<150)
[2019-11-23 08:03] VITALS: BP 118/77; PULSE 50; RESP 14; TEMP 97.4
[2019-11-23] MEDS ORDERED: ASPIRIN 325 MG TAB PO SCH (09:00)
[2019-11-23] MEDS: levETIRAcetam 500 MG TAB PO SCH (09:06)
[2019-11-23] MEDS: lisinopriL 5 MG TAB PO SCH (09:06)
--- NOTE | 2019-11-23 10:25 | P.PN ---
Subjective HISTORY OF PRESENTING ILLNESS This is a pleasant 44-year-old male past medical history significant for hypertension, sick sinus syndrome status post permanent pacemaker implantation [employer], neurocardiogenic syncope and chronic nicotine dependence. He follows in the office with Dr. Calvillo. He underwent an EEG yesterday that was unremarkable. He is seen and examined resting comfortably lying flat no acute distress. He denies any further symptoms of chest discomfort. Breathing is stable. Dizziness or palpitations. Echocardiogram obtained revealed preserved LV systolic function with EF 50-55%. Blood pressure 118/77 heart rate 50 afebrile and maintaining oxygen saturation on room air. Laboratory data reviewed, LDL 81 and LDL 28. PHYSICAL EXAMINATION CONSTITUTIONAL: No apparent distress. HEENT: Head is normocephalic. Pupils are equal, round. Sclerae anicteric. Mucous membranes of the mouth are moist. No JVD. No carotid bruit. CHEST EXAMINATION: Lungs are clear to auscultation. No chest wall tenderness is noted on palpation or with deep breathing. HEART EXAMINATION: Regular rate and rhythm. S1, S2 heard. No murmurs, gallops or rub. EXTREMITIES: 2+ peripheral pulses, no lower extremity edema and no calf tenderness. ASSESSMENT Syncope Chest pain, atypical. An acute coronary event has been ruled out. No EKG evidence of ischemia. Hypertension Sick sinus syndrome status post permanent pacemaker implantation Chronic nicotine dependence PLAN Discussed with the patient the need to do a stress test. He would prefer to have this done in the office with Dr. Calvillo. Considering he has been chest pain-free and an acute event has been ruled out that is a reasonable approach. Nurse Practitioner note has been reviewed, I agree with a documented findings and plan of care. Patient was seen and examined. Objective - Vital Signs Vital signs: Vital Signs Temp 97.4 F L 11/23/19 08:02 Pulse 50 L 11/23/19 08:02 Resp 14 11/23/19 08:02 BP 118/77 11/23/19 08:02 Pulse Ox 98 11/23/19 08:02 Intake & Output 11/22/19 11/23/19 11/23/19 18:59 06:59 18:59 Other: Voiding Method Toilet Toilet # Voids 1 1 - Labs CBC & Chem 7: 11/21/19 23:15 11/21/19 23:21 Labs: Abnormal Lab Results - Last 24 Hours (Table) 11/22/19 Range/Units 05:55 HDL Cholesterol 28 L (40-60) mg/dL
--- NOTE | 2019-11-23 20:04 | P.DS ---
Providers Date of admission: 11/22/19 00:40 Expected date of discharge: 11/23/19 Attending physician: Anam Woodard MD Consults: 11/22/19 00:40 Consult Physician Urgent Consulting Provider: [facility] Consult Reason/Comments: chest pain Do you want consulting provider notified?: Yes, Notify in am 11/22/19 03:21 Consult Physician Urgent Consulting Provider: Antonieta Macias Consult Reason/Comments: Suspected seizures Do you want consulting provider notified?: Yes Primary care physician: Baldev Hernandez [employer] Course: Discharge Diagnosis: Probable seizure, unresponsive episode Chest pain Hypertension Tobacco abuse History of bradycardia status post pacemaker Hospital Course: Patient is a 44-year-old male for history of hypertension, GERD, bradycardia status post permanent pacemaker implantation, and chronic left arm weakness who presented to the emergency department with complaints of chest pain and diz ziness. In the emergency department he underwent an extensive evaluation. His initial EKG showed sinus bradycardia at a rate of 59. CT of the head showed no acute process, CT angiogram of the neck and brain is negative, CTA of the chest showed no evidence of pulmonary embolism. He is admitted for stroke chest pain rule out. Troponin remained negative. At approximately 3 in the morning the ephraim jett had an episode of unresponsiveness witnessed by the nurse there was concern for Seizure. He Was Keppra Loaded and Started on Oral Keppra. He was seen by cardiology and underwent an echocardiogram which was essentially unremarkable and demonstrated an ejection fraction of 50-55%. He was seen by neurology who was concerned for possible seizure, they recommended continuing keppra and EEG which was negative, long-term EEG as an outpatient recommended. Unfortunately we are unable to obtain an MRI secondary to patient's permanent pacemaker. He did not have any additional episodes after starting his Keppra. He is determined stable for discharge. Initially cardiology had offered inpatient stress test secondary to his initial symptoms. However patient wished to follow-up with an outpatient. Currently the patient is within 60 miles additionally and [facility] He is informed of this by the top case assembler who has been in contact with [facility]. Patient was informed of no driving for 6 months, and to continue Keppra. Patient seen and examined at bedside. No chest pain, shortness breath, nausea, vomiting, or recurrent symptoms. Vital signs reviewed and stable. General: non toxic, no distress, appears at stated age Derm: warm, dry Head: atraumatic, normocephalic, symmetric Eyes: EOMI, no lid lag, anicteric sclera Mouth: no lip lesion, mucus membranes moist Cardiovascular: S1S2 reg, no murmur, positive posterior tibial pulse bilateral, Lungs: CTA bilateral, no rhonchi, no rales , no accessory muscle use Abdominal: soft, nontender to palpation, no guarding, no appreciable organomegaly Ext: no gross muscle atrophy, no edema, no contractures Neuro: CN II-XI grossly intact, no focal neuro deficits Psych: Alert, oriented, appropriate affect A total of 25 minutes of time were spent preparing this complex discharge summary . Patient Condition at Discharge: Stable Plan - Discharge Summary Discharge Rx Participant: No New Discharge Prescriptions: New levETIRAcetam [Keppra] 500 mg PO Q12HR #60 tab Ibuprofen [Motrin] 600 mg PO TID PRN tab PRN Reason: Pain Continue Omeprazole [PriLOSEC] 20 mg PO BID lisinopriL [Zestril] 5 mg PO DAILY Ibuprofen [Motrin Ib] 200 - 600 mg PO HS PRN PRN Reason: Pain Discontinued Ibuprofen [Motrin Ib] 800 mg PO QAM Discharge Medication List Ibuprofen [Motrin Ib] 200 - 600 mg PO HS PRN 11/22/19 [History] Omeprazole [PriLOSEC] 20 mg PO BID 11/22/19 [History] lisinopriL [Zestril] 5 mg PO DAILY 11/22/19 [History] Ibuprofen [Motrin] 600 mg PO TID PRN tab 11/23/19 [Rx] levETIRAcetam [Keppra] 500 mg PO Q12HR #60 tab 11/23/19 [Rx] Follow up Appointment(s)/Referral(s): Fredi Calvillo MD [STAFF PHYSICIAN] - 12/13/19 7:00 am Azam Arias MD [REFERRING] - As Needed (Internal Medicine if you prefer) Baldev Wesley MD [Primary Care Provider] - 1-2 days Stephanie Knutson MD [Medical Doctor] - 1 Week [facility],Clinic [REFERRING] - 1 Week Activity/Diet/Wound Care/Special Instructions: Activity: as tolerated Diet: Heart healthy Special Instructions: NO DRIVING for 6 months. Discharge Disposition: HOME SELF-CARE
== END 2019-11-23 11:50 | disposition home or self-care (01) ==
LOC: EC 22:48 → 3NCARDOBS 11-22 00:40
PROVIDERS: ADMIT Internal Medicine; ATTEND Internal Medicine
DX: R40.4 Transient alteration of awareness (principal); R07.9 Chest pain, unspecified; I10 Essential (primary) hypertension; R51 Headache; R20.2 Paresthesia of skin; R20.0 Anesthesia of skin; F17.200 Nicotine dependence, unspecified, uncomplicated; Z95.0 Presence of cardiac pacemaker; I51.7 Cardiomegaly; I49.5 Sick sinus syndrome; R53.1 Weakness; E66.9 Obesity, unspecified; Z68.35 Body mass index [BMI] 35.0-35.9, adult; Z79.899 Other long term (current) drug therapy; K21.9 Gastro-esophageal reflux disease without esophagitis; M19.90 Unspecified osteoarthritis, unspecified site; Z90.49 Acquired absence of other specified parts of digestive tract; Z82.49 Family history of ischemic heart disease and other diseases of the circulatory system; Z82.3 Family history of stroke; Z83.3 Family history of diabetes mellitus; Z91.09 Other allergy status, other than to drugs and biological substances; Z79.1 Long term (current) use of non-steroidal anti-inflammatories (NSAID)
CPT/HCPCS: 93005 ×3; 96365; 96372 ×2; 96375; 99285; 36415; 95819; 93306; 83880; 80061; 80053; 83690; 83735; 84484 ×2; 85025; 85610; 85730; 80306; 70496; 70450; 70498; 71275; G0378 ×2; J2270; J1644 ×2; J1953; Q9967

== ENCOUNTER 2023-04-07 15:58 | Inpatient (IN) | payer OTHER, BC ==
[2023-04-07 16:12] LABS: Glucose,Whole Blood 137 mg/dL (70-110)
--- NOTE | 2023-04-07 16:15 | ED ---
General Adult HPI - General Stated complaint: Stroke Time Seen by Provider: 04/07/23 16:01 Source: patient, RN notes reviewed, old records reviewed Mode of arrival: EMS Limitations: no limitations - History of Present Illness Initial comments: 7-year-old male presenting with syncopal episode, headache, slurred speech and left-sided weakness. Symptoms began at 1515. His speech is improved compared to what paramedics had initially indicated. He was noted to be weak on the left as well. He had a brief loss of consciousness during transportation. He has no prior history of CVA. - Related Data Home Medications Medication Instructions Recorded Confirmed Ibuprofen [Motrin Ib] 200 - 600 mg PO HS PRN 11/22/19 11/22/19 Omeprazole [PriLOSEC] 20 mg PO BID 11/22/19 11/22/19 lisinopriL [Zestril] 5 mg PO DAILY 11/22/19 11/22/19 Previous Rx's Medication Instructions Recorded Ibuprofen [Motrin] 600 mg PO TID PRN tab 11/23/19 levETIRAcetam [Keppra] 500 mg PO Q12HR #60 tab 11/23/19 Allergies Allergy/AdvReac Type Severity Reaction Status Date / Time adhesive tape Allergy Rash/Hives Verified 11/22/19 08:51 Review of Systems ROS Statement: Those systems with pertinent positive or pertinent negative responses have been documented in the HPI. ROS Other: All systems not noted in ROS Statement are negative. Past Medical History Past Medical History: GERD/Reflux, Hypertension, Musculoskeletal Disorder, Osteoarthritis (OA) Additional Past Medical History / Comment(s): See Dr Calvillo's H&P, bradycardia. Hx-"broken back" pt states high bp d/t back pain per physicians. History of Any Multi-Drug Resistant Organisms: None Reported Past Surgical History: Cholecystectomy, Pacemaker, Tonsillectomy Past Anesthesia/Blood Transfusion Reactions: No Reported Reaction Type of Cardiac Device: Permanent Pacemaker Device Placement Date:: 10/30 Past Psychological History: No Psychological Hx Reported Smoking Status: Current every day smoker Past Alcohol Use History: Occasional Past Drug Use History: None Reported - Past Family History Father Family Medical History: Hypertension Mother Family Medical History: CVA/TIA, Diabetes Mellitus, Hypertension Additional Family Medical History / Comment(s): CABG. General Exam Limitations: no limitations General appearance: alert, in no apparent distress Head exam: Present: atraumatic, normocephalic Eye exam: Present: normal appearance, PERRL ENT exam: Present: normal exam Neck exam: Present: normal inspection. Absent: tenderness, meningismus Respiratory exam: Present: normal lung sounds bilaterally. Absent: respiratory distress, wheezes Cardiovascular Exam: Present: regular rate, normal rhythm GI/Abdominal exam: Present: soft. Absent: distended, tenderness, guarding Extremities exam: Present: normal inspection, normal capillary refill. Absent: pedal edema Neurological exam: Present: alert, oriented X3, motor sensory deficit (Patient has left upper extremity drift, left upper extremity ataxia, left leg drift. Left facial droop, and speech is mildly dysarthric.), other (NIH of 9) Psychiatric exam: Present: normal affect, normal mood Skin exam: Present: warm, dry, intact. Absent: cyanosis, diaphoretic Course Vital Signs 04/07/23 04/07/23 04/07/23 16:04 16:29 16:55 Temperature 97 F L Pulse Rate 98 106 H 92 Respiratory 20 20 20 Rate Blood Pressure 139/86 152/90 140/89 O2 Sat by Pulse 93 L 94 L 96 Oximetry - Reevaluation(s) Reevaluation #1: 04/07/23 16:42 Dr. Quinn was able to review images and does agree that the patient is a candidate for tenecteplase. 04/07/23 1645 Tenecteplase administered. There was slight delay in administering this medication due to the possibility of ethan seizure activity at onset versus subtle seizure activity. And slight transient improvement in symptoms. Reevaluation #2: 04/07/23 17:05 Patient symptoms significantly improved. Medical Decision Making - Medical Decision Making Was pt. sent in by a medical professional or institution (, PA, CYTOGENETICIST, urgent c are, hospital, or skilled nursing...) When possible be specific @ -No Did you speak to anyone other than the patient for history (EMS, parent, family, police, friend...)? What history was obtained from this source @ -No Did you review nursing and triage notes (agree or disagree)? Why? @ -I reviewed and agree with nursing and triage notes Were old charts reviewed (outside hosp., previous admission, EMS record, old EKG, old radiological studies, urgent care reports/EKG's, skilled nursing records)? Report findings @ -No old charts were reviewed Differential Diagnosis (chest pain, altered mental status, abdominal pain women, abdominal pain men, vaginal bleeding, weakness, fever, dyspnea, syncope, headache, dizziness, GI bleed, back pain, seizure, CVA, palpatations, mental health, musculoskeletal)? @ -Differential CVA Ischemic stroke, hemorrhagic stroke, brain tumor, atypical migraine, Wernicke's encephalopathy, seizure, multiple sclerosis, meningitis, encephalitis, hypoglycemia, Guillain-Byers, electrolytes disturbance, myasthenia gravis.... This is not meant to be an all-inclusive list EKG interpreted by me (3pts min.). @Sinus rhythm rate of 91, CO interval 174, QRS duration 106, QTc [address] segment elevation. X-rays interpreted by me (1pt min.). @ -[Chest x-ray negative for acute cardiopulmonary disease. CT interpreted by me (1pt min.). @ -CT without contrast negative for intracranial hemorrhage. U/S interpreted by me (1pt. min.). @ -None done What testing was considered but not performed or refused? (CT, X-rays, U/S, labs)? Why? @ -None What meds were considered but not given or refused? Why? @ -None Did you discuss the management of the patient with other professionals (professionals i.e. , PA, CYTOGENETICIST, lab, RT, psych nurse, social media editor, clerk operator, teacher, campus safety officer, case management social worker)? Give summary @ -, Stroke team, Dr. Quinn, Dr. Be who will admit, and the route aide Dr. Quinones, and the neurologist Dr. Bean Was smoking cessation discussed for >3mins.? @ -No Was critical care preformed (if so, how long)? @ -Yes, 35 minutes Were there social determinants of health that impacted care today? How? (Homelessness, low income, unemployed, alcoholism, drug addiction, transportation, low edu. Level, literacy, decrease access to med. care, group home, rehab)? @ -No Was there de-escalation of care discussed even if they declined (Discuss DNR or withdrawal of care, Hospice)? DNR status @ -No What co-morbidities impacted this encounter? (DM, HTN, Smoking, COPD, CAD, Cancer, CVA, ARF, Chemo, Hep., AIDS, mental health diagnosis, sleep apnea, morbid obesity)? @ -[Hypertension, family history of CVA Was patient admitted / discharged? Hospital course, mention meds given and route, prescriptions, significant lab abnormalities, going to OR and other pertinent info. @47-year-old male presenting with strokelike symptoms. There was concern of possible seizure activity at onset. However this was not sustained and did not require treatment. There is persistent NIH of 9 throughout the patient's stay in the emergency department prior to administration of thrombolytics. The care was managed with the help of the stroke team. There was no absolute contraindications for tenecteplase and the patient was administered this medication with the consent of his . Additionally the patient was loaded with Keppra. He will be admitted to the ICU. Undiagnosed new problem with uncertain prognosis? @ -No Drug Therapy requiring intensive monitoring for toxicity (Heparin, Nitro, Insulin, Cardizem)? @ -No Were any procedures done? @ -No Diagnosis/symptom? @ -[CVA. Acute, or Chronic, or Acute on Chronic? @ -Acute Uncomplicated (without systemic symptoms) or Complicated (systemic symptoms)? @ -[Complicated Side effects of treatment? @ -[No Exacerbation, Progression, or Severe Exacerbation? @ -No Poses a threat to life or bodily function? How? (Chest pain, USA, OR, pneumonia, PE, COPD, DKA, ARF, appy, cholecystitis, CVA, Diverticulitis, Homicidal, Suicidal, threat to staff... and all critical care pts) @ -Yes, CVA - Lab Data Result diagrams: 04/07/23 16:06 04/07/23 16:06 Lab Results 04/07/23 04/07/23 04/07/23 Range/Units 16:06 16:06 16:06 WBC 15.7 H (3.8-10.6) k/uL RBC 5.22 (4.30-5.90) m/uL Hgb 17.0 (13.0-17.5) gm/dL Hct 49.4 (39.0-53.0) % MCV 94.6 (80.0-100.0) fL MCH 32.6 (25.0-35.0) pg MCHC 34.4 (31.0-37.0) g/dL RDW 12.4 (11.5-15.5) % Plt Count 189 (150-450) k/uL MPV 7.3 Neutrophils % 81 % Lymphocytes % 14 % Monocytes % 3 % Eosinophils % 1 % Basophils % 0 % Neutrophils # 12.7 H (1.3-7.7) k/uL Lymphocytes # 2.2 (1.0-4.8) k/uL Monocytes # 0.5 (0-1.0) k/uL Eosinophils # 0.2 (0-0.7) k/uL Basophils # 0.1 (0-0.2) k/uL PT 10.4 (10.0-12.5) sec INR 0.9 (<1.2) APTT 20.5 L (22.0-30.0) sec Sodium 138 (137-145) mmol/L Potassium 3.7 (3.5-5.1) mmol/L Chloride 108 H (98-107) mmol/L Carbon Dioxide 19 L (22-30) mmol/L Anion Gap 11 mmol/L BUN 11 (9-20) mg/dL Creatinine 0.93 (0.66-1.25) mg/dL Est GFR (CKD-EPI)AfAm >90 (>60 ml/min/1.73 sqM) Est GFR (CKD-EPI)NonAf >90 (>60 ml/min/1.73 sqM) Glucose 135 H (74-99) mg/dL POC Glucose (mg/dL) (70-110) mg/dL POC Glu Machine Rebuilder ID Calcium 10.1 (8.4-10.2) mg/dL Total Bilirubin 0.7 (0.2-1.3) mg/dL AST 27 (17-59) U/L ALT 31 (4-49) U/L Alkaline Phosphatase 72 (38-126) U/L Creatine Kinase 163 (55-170) U/L Troponin I (0.000-0.034) ng/mL Total Protein 7.0 (6.3-8.2) g/dL Albumin 4.2 (3.5-5.0) g/dL 04/07/23 04/07/23 Range/Units 16:06 16:09 WBC (3.8-10.6) k/uL RBC (4.30-5.90) m/uL Hgb (13.0-17.5) gm/dL Hct (39.0-53.0) % MCV (80.0-100.0) fL MCH (25.0-35.0) pg MCHC (31.0-37.0) g/dL RDW (11.5-15.5) % Plt Count (150-450) k/uL MPV Neutrophils % % Lymphocytes % % Monocytes % % Eosinophils % % Basophils % % Neutrophils # (1.3-7.7) k/uL Lymphocytes # (1.0-4.8) k/uL Monocytes # (0-1.0) k/uL Eosinophils # (0-0.7) k/uL Basophils # (0-0.2) k/uL PT (10.0-12.5) sec INR (<1.2) APTT (22.0-30.0) sec Sodium (137-145) mmol/L Potassium (3.5-5.1) mmol/L Chloride (98-107) mmol/L Carbon Dioxide (22-30) mmol/L Anion Gap mmol/L BUN (9-20) mg/dL Creatinine (0.66-1.25) mg/dL Est GFR (CKD-EPI)AfAm (>60 ml/min/1.73 sqM) Est GFR (CKD-EPI)NonAf (>60 ml/min/1.73 sqM) Glucose (74-99) mg/dL POC Glucose (mg/dL) 137 H (70-110) mg/dL POC Glu Machine Rebuilder ID Raymond Son Calcium (8.4-10.2) mg/dL Total Bilirubin (0.2-1.3) mg/dL AST (17-59) U/L ALT (4-49) U/L Alkaline Phosphatase (38-126) U/L Creatine Kinase (55-170) U/L Troponin I <0.012 (0.000-0.034) ng/mL Total Protein (6.3-8.2) g/dL Albumin (3.5-5.0) g/dL Critical Care Time Critical Care Time: Yes Total Critical Care Time: 35 Disposition Clinical Impression: Cerebrovascular accident (CVA) Disposition: ADMITTED IP TO THIS HOSP Condition: Serious Is patient prescribed a controlled substance at d/c from ED?: No Referrals: None,Stated [REFERRING] - 1-2 days Time of Disposition: 16:56
[2023-04-07 16:23] LABS: Basophils # (A) 0.1 k/uL (0-0.2); Basophils % (A) 0 %; Eosinophils # (A) 0.2 k/uL (0-0.7); Eosinophils % (A) 1 %; HCT 49.4 % (39.0-53.0); Lymphocytes # (A) 2.2 k/uL (1.0-4.8); Lymphocytes % (A) 14 %; MCH 32.6 pg (25.0-35.0); MCHC 34.4 g/dL (31.0-37.0); MCV 94.6 fL (80.0-100.0); Mean Platelet Volume 7.3; Monocytes # (A) 0.5 k/uL (0-1.0); Monocytes % (A) 3 %; Neutrophils # (A) 12.7 k/uL (1.3-7.7); Neutrophils % (A) 81 %; Platelet Count 189 k/uL (150-450); RBC 5.22 m/uL (4.30-5.90); RDW 12.4 % (11.5-15.5); WBC 15.7 k/uL (3.8-10.6)
--- NOTE | 2023-04-07 16:31 | CT ---
EXAMINATION TYPE: CT brain wo con DATE OF EXAM: 04/07/2023 COMPARISON: 11/21/2019 INDICATION: Neuro deficit, acute, stroke suspected. left sided weakness DLP: 1187.6 mGycm, Automated exposure control for dose reduction was used. CONTRAST: None CT of the brain is performed utilizing 3 mm thick sections through the posterior fossa and 3 mm thick sections through the remaining calvarium. Study is performed within 24 hours of arrival to the hosp ital. No abnormal hyperdensity is present to suggest an acute intracranial hemorrhage. No mass lesion is evident. No acute infarcts are evident. Ventricles and sulci are appropriate for the patient age. Paranasal sinuses and mastoid air cells within the [id number] are clear. IMPRESSION: 1. No acute intracranial process. Follow-up MRI can be performed as clinically indicated.
[2023-04-07 16:42] LABS: INR 0.9 (<1.2); Prothrombin Time 10.4 sec (10.0-12.5)
[2023-04-07] MEDS: SODIUM CHLORIDE 0.9% 1,000 ML IV STA (16:42)
[2023-04-07] MEDS: T.ENECTEPLASE 5 MG/ML VIAL IVP STA (16:44)
[2023-04-07 16:52] LABS: ALT 31 U/L (4-49); AST 27 U/L (17-59); African American GFR (CKD) >90 (>60 ml/min/1.73 sqM); Albumin 4.2 g/dL (3.5-5.0); Alkaline Phosphatase 72 U/L (38-126); Anion Gap 11 mmol/L; Blood Urea Nitrogen 11 mg/dL (9-20); Calcium 10.1 mg/dL (8.4-10.2); Carbon Dioxide 19 mmol/L (22-30); Chloride 108 mmol/L (98-107); Creatine Kinase 163 U/L (55-170); Glucose 135 mg/dL (74-99); Non-African American GFR(CKD) >90 (>60 ml/min/1.73 sqM); Potassium 3.7 mmol/L (3.5-5.1); Sodium 138 mmol/L (137-145); Total Bilirubin 0.7 mg/dL (0.2-1.3)
--- NOTE | 2023-04-07 16:54 | CT ---
EXAMINATION TYPE: CT angio head neck DATE OF EXAM: 04/07/2023 HISTORY: Neuro deficit, acute, stroke suspected. left sided weakness COMPARISON: None CT DLP: 1095.2 mGycm. Automated Exposure Control for Dose Reduction was Utilized. TECHNIQUE: CTA scan of the head and neck is performed with IV Contrast, patient injected with 65ml m L of Isovue 370, axial images are obtained, coronal and sagittal reformatted images are reviewed. 3D reconstructed images are created on an independent workstation and reviewed. FINDINGS: FINDINGS: The brachiocephalic origins are widely patent and no significant stenosis. There is no significant stenosis of the common or internal carotid arteries within the neck. There is no stenosis of the vertebral arteries. Intracranially, there is no stenosis, segmental occlusion, sizable aneurysm sac or vascular malformat ion. IMPRESSION:. No significant abnormality seen. NASCET criteria was used in interpretation of this exam?
[2023-04-07 16:56] LABS: Partial Thromboplastin Time 20.5 sec (22.0-30.0)
[2023-04-07] MEDS: levETIRAcetam IV 2,000 MG in SODIUM CHLORIDE 0.9% 250 ML IVPB ONE (17:12)
[2023-04-07] MEDS: ATORVASTATIN 80 MG TAB PO STA (17:18)
[2023-04-07] MEDS: SODIUM CHLORIDE 0.9% 1,000 ML IV SCH (17:39)
--- NOTE | 2023-04-07 17:56 | XR ---
EXAMINATION TYPE: XR chest 1V portable DATE OF EXAM: 04/07/2023 COMPARISON: NONE HISTORY: Syncopal episode TECHNIQUE: Single frontal view of the chest is obtained. FINDINGS: There is a 2-lead cardiac pacemaker. The heart and pulmonary vasculature are normal. There is no pleural effusion or pneumothorax. The lungs are clear of consolidative or interstitial opacity. The osseous structures are intact IMPRESSION: No acute cardiopulmonary disease.
[2023-04-07 17:57] LABS: Glucose,Whole Blood 171 mg/dL (70-110)
[2023-04-07] MEDS ORDERED: DEXTROSE 50% SYRINGE 50 ML IVP PRN ×2 (18:00)
--- NOTE | 2023-04-07 18:16 | P.HPIM ---
History of Present Illness H&P Date: 04/07/23 Patient is a 47-year-old male with known GERD, hypertension, bradycardia status post permanent pacemaker, and osteoarthritis who presented to the emergency department with complaints of syncopal episode, headache, slurred speech, and left-sided weakness. On arrival to the emergency department his NIH was 9. Initial vital signs were within normal limits. Laboratory analysis included CBC , coags, CMP, CK, and troponin which were remarkable for white blood cell count 15.7, carbon dioxide 19, and glucose of 135. CT brain showed no acute intracranial process. CTA of the head and neck demonstrated no significant abnormalities. Code stroke was activated. Dr. Ty to the emergency department physician spoke with neurointensivist who did recommend tenecteplase which was administered patient had resolution of symptoms within 90 seconds. Arrangements were made for admission to the ICU. Patient seen and examined at bedside with present in the emergency department. Story from him and his is that he called her this afternoon while driving stating he had a headache and felt lightheaded and was having difficulty seeing. She asked him to pull worker. The last thing he remembers is speaking with her and then waking up in the emergency department. reports that he called his boss and EMS was activated. He does not remember transport from EMS. On arrival to the ER he was noted to have slurred speech, pronator drift, and left-sided weakness. Currently he is headache free and feeling back to his normal self. He has chronic left upper extremity weakness after a back injury which is unchanged. His thinking is back to normal. He denies any recent cough, cold, fever, flu. He last had Dr. Calvillo on Friday and had his pacemaker interrogated. Patient was here in 2019 and was diagnosed with possible seizures. At that point in time he was started on Keppra. He [facility] They were never able to confirm the seizures but does continue to say "probable". They had him continue Keppra to see if it would help with his migraine headaches. He did not have any improvement in migraines and therefore was taken off of this medication. He reports that he has been inconsistent with taking his blood pressure medications and misses 2 to 3 days at a time. Vital signs reviewed General: nontoxic, no distress, appears at stated age Derm: warm, dry Eyes: EOMI, no lid lag, anicteric sclera, pupils equal round reactive to light ENT: Nose and ears atraumatic Cardiovascular: S1S2 reg, no murmur, no edema Lungs: clear to auscultation bilateral, no rhonchi, no rales, no wheeze, no accessory muscle use Abdominal: soft, nontender to palpation, no guarding Ext: no gross muscle atrophy, no contractures Neuro: Pupils equal round reactive to light, extraocular motion intact, no tongue deviation, palate elevation equal, shoulder shrug equal, decrease strength in pronation, supination, flexion and extension at elbow and abduction and abduction at shoulder on left upper extremity, right upper extremity is 5 out of 5 in all of these ranges of motion. Light touch intact bilateral face and all 4 extremities. Psych: Alert, oriented, appropriate affect Assessment/Plan: Episode of unresponsiveness associated with difficulty speaking and left sided facial droop and weakness. -Neurologic symptoms improved in ER after administration of TNK per emergency department physician -Admit to ICU -Possible etiologies do include stroke versus seizure with Chip's paralysis versus complex migraine versus pacemaker malfunction -Case discussed with neurology at length -Aspirin will be started 24 hours after TNK. Repeat head CT in 24 hours. Patient is not able to have MRI due to pacemaker -Lipitor 80 mg at night -Pacemaker interrogation, echocardiogram, telemetry -Seizure precautions. EEG in a.m. -Hold lisinopril and allow for 48 hours of permissive hypertension. Follow blood pressures. Treat only for systolic greater than 180 or having received TNK Sick sinus syndrome - s/p PPM GERD - Protonix 40 mg PO daily Nicotine dependence - nicotine patch 21 mcg daily, and nicotine gum 2 mg q 4 hours prn Hx of migraine SHIN Imaging: As per HPI Data Review: As per HPI The patient is admitted with an anticipated greater than 2 midnight stay for evaluation of uresponsive episode Surrogate decision-maker: CODE STATUS:Full DVT prophylaxis: SCDs Anticipated discharge date: Pending Clinical Course Anticipated discharge place: Pending Clinical Course This dictation was prepared using [employer] voice recognition software. Though every attempt is made to correct errors during dictation some may still exist. Past Medical History Past Medical History: GERD/Reflux, Hypertension, Musculoskeletal Disorder, Osteoarthritis (OA) Additional Past Medical History / Comment(s): sick sinus syndrome, chronic left arm weakness, migraine SHIN. Hx-"broken back" pt states high bp d/t back pain per physicians. History of Any Multi-Drug Resistant Organisms: None Reported Past Surgical History: Cholecystectomy, Pacemaker, Tonsillectomy Past Anesthesia/Blood Transfusion Reactions: No Reported Reaction Type of Cardiac Device: Permanent Pacemaker Device Placement Date:: 10/30 Past Psychological History: No Psychological Hx Reported Smoking Status: Current every day smoker Past Alcohol Use History: Occasional Past Drug Use History: None Reported - Past Family History Father Family Medical History: Hypertension Mother Family Medical History: CVA/TIA, Diabetes Mellitus, Hypertension Additional Family Medical History / Comment(s): CABG. Medications and Allergies Home Medications Medication Instructions Recorded Confirmed Type Omeprazole Magnesium [PriLOSEC OTC] 40 mg PO DAILY 04/07/23 04/07/23 History lisinopriL 40 mg PO DAILY 04/07/23 04/07/23 History Allergies Allergy/AdvReac Type Severity Reaction Status Date / Time adhesive tape Allergy Rash/Hives Verified 04/07/23 17:10 Physical Exam Osteopathic Statement: *. No significant issues noted on an osteopathic structural exam other than those noted in the History and Physical/Consult. Vitals: Vital Signs Temp Pulse Resp BP Pulse Ox 04/07/23 17:59 97.7 F 82 18 96 04/07/23 17:30 86 16 126/80 96 04/07/23 17:08 93 20 129/86 96 04/07/23 16:55 92 20 140/89 96 04/07/23 16:29 106 H 20 152/90 94 L 04/07/23 16:04 97 F L 98 20 139/86 93 L Intake and Output 04/07/23 04/07/23 04/07/23 06:59 14:59 22:59 Other: Weight 117.934 kg Results CBC & Chem 7: 04/07/23 16:06 04/07/23 16:06 Labs: Abnormal Lab Results - Last 24 Hours (Table) 04/07/23 04/07/23 04/07/23 Range/Units 16:06 16:06 16:06 WBC 15.7 H (3.8-10.6) k/uL Neutrophils # 12.7 H (1.3-7.7) k/uL APTT 20.5 L (22.0-30.0) sec Chloride 108 H (98-107) mmol/L Carbon Dioxide 19 L (22-30) mmol/L Glucose 135 H (74-99) mg/dL POC Glucose (mg/dL) (70-110) mg/dL 04/07/23 04/07/23 Range/Units 16:09 17:56 WBC (3.8-10.6) k/uL Neutrophils # (1.3-7.7) k/uL APTT (22.0-30.0) sec Chloride (98-107) mmol/L Carbon Dioxide (22-30) mmol/L Glucose (74-99) mg/dL POC Glucose (mg/dL) 137 H 171 H (70-110) mg/dL
[2023-04-07] MEDS ORDERED: NICOTINE GUM (POLACRILEX) 2 MG GUM BUCCAL PRN (18:17)
[2023-04-07] MEDS: LORazepam 2 MG/ML INJ IV PRN (18:18)
[2023-04-07] MEDS: LABETALOL 5 MG/ML VIAL MDV IVP PRN (18:18)
--- NOTE | 2023-04-07 18:56 | CT ---
EXAMINATION TYPE: CT brain wo con DATE OF EXAM: 04/07/2023 COMPARISON: 04/07/2023 HISTORY: worsening neuro symptoms CT DLP: 1279.4 mGycm. Automated Exposure Control for Dose Reduction was Utilized. TECHNIQUE: CT scan of the head is performed without contrast. FINDINGS: The ventricles, basal cisterns and sulci over convexities are within normal limits and there is no ma ss effect or shift of midline structures. There has been interval development of loss of the kemp-white differentiation in the right inferior f rontal lobe consistent with a developing infarct. There is no acute intra or extra-axial hemorrhage. The posterior fossa is grossly normal. The intraorbital contents appear normal and symmetric. There are mild chronic inflammatory changes in the maxillary sinuses. The mastoid air cells are well aerated. IMPRESSION: Right inferior frontal lobe acute infarct without bleed or mass effect.
[2023-04-07] MEDS ORDERED: FAMOTIDINE 20 MG TAB PO SCH (21:00)
[2023-04-07 21:22] LABS: Glucose,Whole Blood 155 mg/dL (70-110)
[2023-04-07] MEDS: INSULIN ASPART (NovoLOG) 100 UNIT/ML VIAL SQ SCH (21:28)
[2023-04-07] MEDS: TOPIRAMATE 25 MG TAB PO SCH (21:28)
[2023-04-07] MEDS: ACETAMINOPHEN TAB 325 MG TAB PO PRN (21:37)
--- NOTE | 2023-04-08 02:05 | P.CNPUL ---
History of Present Illness Consult date: 04/08/23 Requesting physician: Jonathan Ty Reason for consult: other (Acute CVA; ICU management) Chief complaint: Altered mental status and left-sided weakness History of present illness: I am seeing this patient in new consultation today April 08, 2023 after he presented with CVA-like symptoms, was administered fibrinolytics, and is currently being monitored in the intensive care unit. Patient is a 47-year-old white male with past medical history significant for hypertension, bradycardia with permanent pacemaker, GERD, and osteoarthritis. He currently smokes 1/2 pack of cigarettes per day. I am told, the patient is fairly noncompliant with his blood pressure medication. He will miss several doses per week. He has no personal history of CVA. He has significant family history of stroke, his mother in her 50s from massive stroke. Patient presented to the emergency room yesterday at 1558 with acute CVA-like symptoms that reportedly started at 1515. 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 There were some vision changes. He called his ,, and EMS was alerted to the scene. Patient reportedly had slurred speech and significant left-sided hemiplegia. A code stroke was activated. Initial NIH was scored at 9. Initial brain CT did not show any acute intracranial process. No hemorrhage or mass effect. Brain CTA did not show any significant stenosis, occlusion, or sizable aneurysm. Patient was given tenecteplase. CBC on arrival: WC count 15.7, hemoglobin 17, hematocrit 49.4, platelets 189. Coagulation profile includes a PT of 10.4, INR 0.9, and APTT 20.5. BMP on arrival: Sodium 138, potassium 3.7, chloride 108, serum bicarb 19, BUN 11, creatinine 0.93, glucose 135. Normal saline is infusing at 100 MLS per hour. Troponin is less than 0.012. Patient is currently in the intensive care unit, post fibrinolytics. He is drowsy, but oriented x 3. Earlier, he reportedly had right upper extremity tremors, felt to be seizure-like activity. His mentation was also altered. No loss of bladder or bowel incontinence. Time was not recorded. Patient was given a dose of Ativan and started on Topamax by medical neurologist. No further seizure-like activity reported and nothing noted on my examination. Patient was sent down for repeat brain CT which demonstrated a right inferior frontal lobe acute infarct without bleed or mass effect. Patient has questionable history of seizures, and was previously on Keppra. He was not loaded with Keppra in the emergency room prior to admission to the ICU. Patient continues to have notable left sided hemiplegia. He may have chronic left upper extremity weakness from a "pinched nerve", and we are unsure if this is his baseline. Dysarthria seems to be improved. Blood pressure is normotensive. Heart rhythm is normal sinus rhythm around 70 bpm. He is on room air. He is lying in bed in no acute distress. Vital signs are stable. Review of Systems REVIEW OF SYSTEMS: CONSTITUTIONAL: Denies any recent significant weight loss or weight gain. EYES: Patient denies any current vision changes such as blurred vision, double vision, or loss of peripheral vision. EARS, NOSE, MOUTH, THROAT: Patient had a headache earlier, denies any headaches currently. CARDIOVASCULAR: Denies chest pain, palpitations. Patient did lose consciousness earlier prior to EMS arrival. RESPIRATORY: Denies shortness of breath, cough, congestion or hemoptysis. GASTROINTESTINAL: Denies change in appetite, abdominal pain, nausea and vomiting, or diarrhea GENITOURINARY: Denies hematuria, denies infections. MUSKULOSKELETAL: Denies pain, denies swelling. INTEGUMENTARY: Denies rash, denies eczema. NEUROLOGICAL: Patient states that last known seizure was approximately 3 to 4 years ago. He does admit CVA symptoms such as reported in HPI. He has chronic left upper extremity weakness from "pinched nerve", however, current left-sided weakness involves upper and lower extremity. Reportedly had slurred speech prior to tenecteplase. PSYCHIATRIC: Denies anxiety, denies depression. HEMATOLOGIC/LYMPHATIC: Denies anemia, denies enlarged lymph node Past Medical History Past Medical History: GERD/Reflux, Hypertension, Musculoskeletal Disorder, Osteoarthritis (OA) Additional Past Medical History / Comment(s): sick sinus syndrome, chronic left arm weakness, migraine SHIN. Hx-"broken back" pt states high bp d/t back pain per physicians. History of Any Multi-Drug Resistant Organisms: None Reported Past Surgical History: Cholecystectomy, Pacemaker, Tonsillectomy Past Anesthesia/Blood Transfusion Reactions: No Reported Reaction Type of Cardiac Device: Permanent Pacemaker Device Placement Date:: 10/30 Past Psychological History: No Psychological Hx Reported Smoking Status: Current every day smoker Past Alcohol Use History: Occasional Past Drug Use History: None Reported - Past Family History Father Family Medical History: Hypertension Mother Family Medical History: CVA/TIA, Diabetes Mellitus, Hypertension Additional Family Medical History / Comment(s): CABG. Medications and Allergies Home Medications Medication Instructions Recorded Confirmed Type Omeprazole Magnesium [PriLOSEC OTC] 40 mg PO DAILY 04/07/23 04/07/23 History lisinopriL 40 mg PO DAILY 04/07/23 04/07/23 History Allergies Allergy/AdvReac Type Severity Reaction Status Date / Time adhesive tape Allergy Rash/Hives Verified 04/07/23 17:10 Physical Exam Vitals: Vital Signs Temp Pulse Resp BP Pulse Ox 04/08/23 00:45 72 16 114/64 94 L 04/08/23 00:30 70 14 108/71 96 04/08/23 00:15 75 17 108/71 87 L 04/08/23 00:14 74 17 108/71 88 L 04/08/23 00:00 97.8 F 73 15 104/69 90 L 04/07/23 23:45 79 13 104/69 92 L 04/07/23 23:30 77 21 113/83 91 L 04/07/23 23:15 84 15 113/83 90 L 04/07/23 23:00 85 19 98/69 92 L 04/07/23 22:45 89 13 98/69 90 L 04/07/23 22:30 88 0 L 108/67 91 L 04/07/23 22:15 87 15 108/67 91 L 04/07/23 22:00 85 15 126/74 93 L 04/07/23 21:45 90 24 126/74 94 L 04/07/23 21:30 93 21 120/74 95 04/07/23 21:15 88 18 132/64 95 04/07/23 21:00 78 14 121/73 94 L 04/07/23 20:45 73 18 125/79 93 L 04/07/23 20:30 76 18 125/85 94 L 04/07/23 20:15 87 11 L 126/92 94 L 04/07/23 20:00 78 14 126/82 95 04/07/23 19:45 71 19 128/81 93 L 04/07/23 19:30 81 24 127/81 93 L 04/07/23 19:15 77 17 116/80 93 L 04/07/23 19:00 79 15 128/80 94 L 04/07/23 18:45 77 19 125/79 94 L 04/07/23 18:30 78 25 H 144/93 96 04/07/23 18:15 85 28 H 97 04/07/23 18:14 80 23 96 04/07/23 17:59 97.7 F 82 18 96 04/07/23 17:30 86 16 126/80 96 04/07/23 17:08 93 20 129/86 96 04/07/23 16:55 92 20 140/89 96 04/07/23 16:29 106 H 20 152/90 94 L 04/07/23 16:04 97 F L 98 20 139/86 93 L Intake and Output 04/07/23 04/07/23 04/08/23 14:59 22:59 06:59 Intake Total 500 200 Output Total 1000 Balance -500 200 Intake: IV 500 200 Sodium Chloride 0.9% 1, 500 200 000 ml @ 100 mls/hr IV . Q10H [facility] Rx#:[id number] Output: Urine 1000 Other: Voiding Method Urinal Urinal Weight 117.934 kg GENERAL EXAM: Drowsy 47-year-old white male, but otherwise oriented x 3. He wakes up to verbal stimulation and is able to hold a conversation. He answers questions appropriately. He is comfortable in no apparent distress. HEAD: Normocephalic and atraumatic EYES: Normal reaction of pupils, equal size. NOSE: Clear with pink turbinates. THROAT: No erythema or exudates. NECK: No masses, no JVD. CHEST: No chest wall deformity. There is a implanted device in the left upper chest LUNGS: Equal air entry with no crackles, wheeze, rhonchi or dullness. No conversational dyspnea or accessory muscle use.. CVS: S1 and S2 normal with no audible murmur, regular rhythm. No extra heart sounds ABDOMEN: No hepatosplenomegaly, active bowel sounds, no guarding or rigidity. SPINE: No scoliosis or deformity SKIN: No rashes CENTRAL NERVOUS SYSTEM: Patient is drowsy but able to answer all questions a ppropriately. He is oriented x 3. Cranial nerves II through XII appear to be intact. Pupils equal round and reactive to light, equally track in all cardinal directions, he is able to accurately read the clock, peripheral vision intact, soft palate moves upward and midline, no tongue deviation, no facial paralysis, shoulder shrug strong and equal. No dysarthria or dysphasia. There is left-sided hemiplegia. Left upper extremity strength graded 4-5 and left lower extremity strength graded 3 out of 5. Right upper and lower extremity strength intact 5/5. No ataxia in excess of weakness. EXTREMITIES: There is no peripheral edema, clubbing, or cyanosis. Peripheral pulses are intact. Results - Laboratory Findings CBC and BMP: 04/07/23 16:06 04/07/23 16:06 PT/INR, D-dimer PT 10.4 sec (10.0-12.5) 04/07/23 16:06 INR 0.9 (<1.2) 04/07/23 16:06 Abnormal lab findings: Abnormal Labs 04/07/23 04/07/23 04/07/23 16:06 16:06 16:06 WBC 15.7 H Neutrophils # 12.7 H APTT 20.5 L Chloride 108 H Carbon Dioxide 19 L Glucose 135 H POC Glucose (mg/dL) 04/07/23 04/07/23 04/07/23 16:09 17:56 21:20 WBC Neutrophils # APTT Chloride Carbon Dioxide Glucose POC Glucose (mg/dL) 137 H 171 H 155 H Assessment and Plan Assessment: Acute CVA, status/post tenecteplase infusion. Most recent brain CT identified a right inferior frontal lobe acute infarct without bleed or mass effect. Patient has had some improvement in his deficit. Dysarthria appears to be improved. He continues to have left-sided hemiplegia, but has history of chronic left upper extremity weakness. Possible seizure, patient reportedly has history of seizure disorder and was previously on Keppra History of sick sinus syndrome, status post permanent pacemaker insertion History of hypertension, with questionable medication compliance Chronic left upper extremity weakness GERD without esophagitis Chronic ongoing tobacco dependence Plan: Patient's medications, labs, imaging reviewed Patient is currently being monitored in the intensive care unit as he is status post fibrinolytics. Continue neurochecks per protocol Continue seizure precautions Neurologist on-call has added Topamax and as needed Ativan. Allow for permissive hypertension, as needed labetalol ordered for blood pressures greater than 180/105. Smoking cessation counseling performed PT/OT consults placed Patient reportedly passed his bedside swallow evaluation, and was advanced to heart healthy diet. Echocardiogram pending for the morning. EEG pending for the morning. 24-hour follow-up brain CT ordered. Antiplatelet medication likely to follow. Antihyperlipidemics ordered. Vital signs are currently stable, and patient will be monitored in the intensive care unit at least overnight. I have personally seen and examined the patient, performed the documentation and the assessment and plan as written. Number of minutes spent on the visit:20 Time with Patient: Greater than 30
[2023-04-08 04:10] LABS: HCT 41.9 % (39.0-53.0); HGB 14.3 gm/dL (13.0-17.5); MCH 32.4 pg (25.0-35.0); MCHC 34.1 g/dL (31.0-37.0); Mean Platelet Volume 7.5; Platelet Count 169 k/uL (150-450); RBC 4.41 m/uL (4.30-5.90); RDW 12.4 % (11.5-15.5); WBC 9.6 k/uL (3.8-10.6)
[2023-04-08 04:23] LABS: African American GFR (CKD) >90 (>60 ml/min/1.73 sqM); Anion Gap 4 mmol/L; Blood Urea Nitrogen 10 mg/dL (9-20); Calcium 9.1 mg/dL (8.4-10.2); Carbon Dioxide 23 mmol/L (22-30); Chloride 111 mmol/L (98-107); Glucose 95 mg/dL (74-99); Non-African American GFR(CKD) >90 (>60 ml/min/1.73 sqM); Potassium 4.1 mmol/L (3.5-5.1); Sodium 138 mmol/L (137-145)
[2023-04-08] MEDS: levETIRAcetam IV 500 MG/5 ML VIAL IVP SCH (04:56)
[2023-04-08 06:44] LABS: Glucose,Whole Blood 111 mg/dL (70-110)
[2023-04-08] MEDS: PANTOPRAZOLE 40 MG TABLET PO SCH (06:45)
[2023-04-08] MEDS: NICOTINE 7MG/24HR PATCH TRANSDERM SCH (08:41)
[2023-04-08 08:53] LABS: Chol/HDL Ratio 4.76 Ratio; LDL Cholesterol,Calculated 88.2 mg/dL (0.0-131.0)
[2023-04-08] MEDS ORDERED: levETIRAcetam IV 500 MG/5 ML VIAL IVP SCH (09:00)
[2023-04-08 11:16] LABS: Glucose,Whole Blood 113 mg/dL (70-110)
--- NOTE | 2023-04-08 12:23 | P.CNNES ---
History of Present Illness Consult date: 04/08/23 Requesting physician: Jonathan Ty Reason for Consult: cva History of Present Illness: This is a 47-year-old gentleman with history of cardiac status post permanent pacemaker, episode of unresponsiveness, headaches who presents emergency department on 04/07/2023 with complaint of syncopal episodes, headache, slurred speech and left-sided weakness. Initially he told me that he came because of dizzy, speech difficulty, visual disturbance and shortness of breath. Patient denies being on any antiplatelet or anticoagulation. Because of that patient had a CT head and CT angiography head and neck which were unremarkable. He had NIH stroke scale of a 9 in the ED. A stroke code was activated and the ED spoke with the stroke team, Dr. Quinn. Patient was given IV thrombolytic. Patient had resolution of his symptoms. Per the ED he was also loaded with Keppra 2 g by the ED team. Yesterday while in the ICU he had a staring episode and the was unresponsive and had upward gaze so he was given Ativan 2 mg and I started him on Topamax 50 mg twice a day. Then overnight around 5:30 H was notified he had another similar episode saw I notified them Backstrom on Keppra 750mg bid. He does have headache and he feels he's having frequent headaches and it's retro-orbital over both eyes and feels like it's a punching headache he does have photophobia, phonophobia, nauseous. It can last for hours. He states that he follows up with the [facility] neurology team states that he's having episodes of unresponsiveness and he was on Keppra and that was discontinued by the [facility]y team according to the patient since they're not helping with a headache. Regarding his unresponsiveness he stated that he had a prolonged EEG and which was ambulatory and was told was normal as an outpatient by the [facility]. He has 5-6 headaches in a week. He is not on any medication other than [id number] that the he takes. I personally seen the patient last in our facility on 11/21/2019 and at that time he was having chronic episode of unresponsiveness and I stated at that time that possible seizure but cannot rule out cardiac etiology. At that time he was started on Keppra 500 mg twice a day. Please refer to our notes for further details. Some of the workup during his hospital visit consisted of Initial white blood cells 15.7 repeated is 9.6. Sodium is 138, glucose is 135, calcium 7.1, hemoglobin A1c is 5.7 Lipid panel is triglycerides 104, cholesterol is 13, LDLs [address] of the head is reported as no acute intracranial process. Follow-up MRI can be performed as clinically indicated. I personally reviewed the CT head CT angiography of the head and neck is reported as no significant abnormality seen EKG is reported as sinus rhythm. Possible right atrial enlargement. Low QRS v oltage in the pericardial leads. Repeat CT of the head yesterday because of recurrent symptoms was reported as right inferior frontal lobe acute infarct without bleed or mass effect. I personally reviewed the CT and I had a hard time the patient acute and subacute ischemia. Review of Systems Review of system: The 12 point system was reviewed and apparent positive and negative per HPI. Past Medical History Past Medical History: GERD/Reflux, Hypertension, Musculoskeletal Disorder, Osteoarthritis (OA) Additional Past Medical History / Comment(s): sick sinus syndrome, chronic left arm weakness, migraine SHIN. Hx-"broken back" pt states high bp d/t back pain per physicians. History of Any Multi-Drug Resistant Organisms: None Reported Past Surgical History: Cholecystectomy, Pacemaker, Tonsillectomy Past Anesthesia/Blood Transfusion Reactions: No Reported Reaction Type of Cardiac Device: Permanent Pacemaker Device Placement Date:: 10/30 Past Psychological History: No Psychological Hx Reported Smoking Status: Current every day smoker Past Alcohol Use History: Occasional Past Drug Use History: None Reported - Past Family History Father Family Medical History: Hypertension Mother Family Medical History: CVA/TIA, Diabetes Mellitus, Hypertension Additional Family Medical History / Comment(s): CABG. Medications and Allergies Home Medications Medication Instructions Recorded Confirmed Type Omeprazole Magnesium [PriLOSEC OTC] 40 mg PO DAILY 04/07/23 04/07/23 History lisinopriL 40 mg PO DAILY 04/07/23 04/07/23 History Allergies Allergy/AdvReac Type Severity Reaction Status Date / Time adhesive tape Allergy Rash/Hives Verified 04/07/23 17:10 Physical Examination - Vital Signs Vital Signs: Vital Signs Temp Pulse Resp BP Pulse Ox 04/08/23 11:51 93 L 04/08/23 11:00 73 16 125/80 97 04/08/23 10:45 50 L 13 96 04/08/23 10:30 55 L 10 L 118/70 95 04/08/23 10:15 50 L 21 96 04/08/23 10:00 58 L 16 126/76 94 L 04/08/23 09:45 52 L 22 95 04/08/23 09:30 80 17 125/81 95 04/08/23 09:15 61 22 94 L 04/08/23 09:00 52 L 13 131/80 94 L 04/08/23 08:45 59 L 13 94 L 04/08/23 08:30 61 15 127/87 95 04/08/23 08:15 56 L 12 94 L 04/08/23 08:00 97.9 F 54 L 14 108/62 94 L 04/08/23 07:45 61 15 96 04/08/23 07:30 65 16 94 L 04/08/23 07:15 74 17 114/61 96 04/08/23 07:00 62 15 100/64 98 04/08/23 06:45 54 L 14 100/64 96 04/08/23 06:30 64 12 105/69 96 04/08/23 06:15 60 13 105/69 97 04/08/23 06:00 62 5 L 106/61 95 04/08/23 05:45 62 13 106/61 96 04/08/23 05:30 67 15 107/63 97 04/08/23 05:15 66 14 107/63 97 04/08/23 05:00 63 16 97/52 96 04/08/23 04:45 70 21 97/52 97 04/08/23 04:30 64 15 126/73 97 04/08/23 04:15 68 14 112/68 95 04/08/23 04:00 98.0 F 67 13 116/70 97 04/08/23 03:45 61 13 116/70 97 04/08/23 03:30 77 14 106/64 96 04/08/23 03:15 71 15 106/64 95 04/08/23 03:00 69 15 98/64 95 04/08/23 02:45 69 15 98/64 96 04/08/23 02:30 68 15 105/71 95 04/08/23 02:15 68 16 105/71 93 L 04/08/23 02:00 66 14 105/68 96 04/08/23 01:45 67 17 105/68 97 04/08/23 01:30 69 14 117/70 96 04/08/23 01:15 71 16 117/70 96 04/08/23 01:00 90 17 114/64 95 04/08/23 00:45 72 16 114/64 94 L 04/08/23 00:30 70 14 108/71 96 04/08/23 00:15 75 17 108/71 87 L 04/08/23 00:14 74 17 108/71 88 L 04/08/23 00:00 97.8 F 73 15 104/69 90 L 04/07/23 23:45 79 13 104/69 92 L 04/07/23 23:30 77 21 113/83 91 L 04/07/23 23:15 84 15 113/83 90 L 04/07/23 23:00 85 19 98/69 92 L 04/07/23 22:45 89 13 98/69 90 L 04/07/23 22:30 88 0 L 108/67 91 L 04/07/23 22:15 87 15 108/67 91 L 04/07/23 22:00 85 15 126/74 93 L 04/07/23 21:45 90 24 126/74 94 L 04/07/23 21:30 93 21 120/74 95 04/07/23 21:15 88 18 132/64 95 04/07/23 21:00 78 14 121/73 94 L 04/07/23 20:45 73 18 125/79 93 L 04/07/23 20:30 76 18 125/85 94 L 04/07/23 20:15 87 11 L 126/92 94 L 04/07/23 20:00 78 14 126/82 95 04/07/23 19:45 71 19 128/81 93 L 04/07/23 19:30 81 24 127/81 93 L 04/07/23 19:15 77 17 116/80 93 L 04/07/23 19:00 79 15 128/80 94 L 04/07/23 18:45 77 19 125/79 94 L 04/07/23 18:30 78 25 H 144/93 96 04/07/23 18:15 85 28 H 97 04/07/23 18:14 80 23 96 04/07/23 17:59 97.7 F 82 18 96 04/07/23 17:30 86 16 126/80 96 04/07/23 17:08 93 20 129/86 96 04/07/23 16:55 92 20 140/89 96 04/07/23 16:29 106 H 20 152/90 94 L 04/07/23 16:04 97 F L 98 20 139/86 93 L Intake and Output 04/07/23 04/08/23 04/08/23 22:59 06:59 14:59 Intake Total 500 800 500 Output Total 1000 950 500 Balance -500 -150 0 Intake: IV 500 800 500 Sodium Chloride 0.9% 1, 500 800 500 000 ml @ 100 mls/hr IV . Q10H [facility] Rx#:[id number] Output: Urine 1000 950 500 Other: Voiding Method Urinal Urinal Urinal Weight 117.934 kg 116.5 kg GENERAL: The patient is lying in bed and is not in acute distress. NEUROLOGICAL: Higher mental function: The patient is awake, alert, oriented to self, place and time. Patient is following commands. No aphasia and no neglect. Cranial nerves: The pupils are round, equal and reactive to light and accommodation. Visual christensen are full to confrontation throughout. Extraocular movement is intact no nystagmus is noted. Facial sensation is normal to touch throughout. The facial strength is normal throughout. Hearing is normal bilaterally to hand rub. Tongue is midline and moved [id number] without any difficulty. No dysarthria is noted. Shoulder shrug is normal bilaterally. Motor: The strength is left hand rice drier is 4+. Otherwise 5 over 5 throughout. Normal tone and bulk. Cerebellum: Normal finger to nose heel to tomas bilaterally. Sensation: Sensation is normal to touch throughout. Reflexes (right/left): 2+ throughout. Plantars are downgoing bilaterally. Results - Laboratory Findings CBC and BMP: 04/08/23 03:33 04/08/23 03:33 Abnormal Lab Findings: Abnormal Labs 04/07/23 04/07/23 04/07/23 16:06 16:06 16:06 WBC 15.7 H Neutrophils # 12.7 H APTT 20.5 L Chloride 108 H Carbon Dioxide 19 L Glucose 135 H POC Glucose (mg/dL) HDL Cholesterol 04/07/23 04/07/23 04/07/23 16:09 17:56 21:20 WBC Neutrophils # APTT Chloride Carbon Dioxide Glucose POC Glucose (mg/dL) 137 H 171 H 155 H HDL Cholesterol 04/08/23 04/08/23 04/08/23 03:33 06:44 11:15 WBC Neutrophils # APTT Chloride 111 H Carbon Dioxide Glucose POC Glucose (mg/dL) 111 H 113 H HDL Cholesterol 29.00 L Assessment and Plan Assessment: This is a 47-year-old gentleman who presented emergency department on 04/07/2023 for a left-sided weakness, slurred speech, headache and syncopal episode. NIH stroke scale per the ED is 9. Patient received IV thrombolytic. She had had multiple episode of staring off with looking upwards and there was a concern for seizure. He has chronic history of unresponsiveness and had a prolonged EEG and [facility] was told the EEG was negative for any seizures or discharges according to patient. [facility] since not helping according to patient. He continues to have frequent headaches. Episode of expressive aphasia, dysarthria, left-sided weakness with headache and syncopal episode. Then had multiple episode of staring off with looking upwards: Possible due to seizure with Chip paralysis versus complicated migraine versus acute ischemic stroke Chronic unresponsiveness episodes and had a prolonged [facility] according to the patient and was notified no seizure discharges Possible comp get migraine History of bradycardia status post operative pacemaker Plan: He was started on Topamax 50 mg twice a day which can help what with both migraine as well as seizures. Patient was notified of the side effects of memory issues, the paresthesia, renal and visual issues as well. Yesterday I started him on Keppra 750 mg bid since continued to have repeated episodes of unresponsiveness. EEG preliminary is no seizure or discharges. Therefore I discontinued and will keep him on Topmax with goal of 100mg bid. By next week go up on Topamax to 100mg bid. Pending repeat CT of the head post 0.4 hour IV thrombolytic 2-D echo was ordered and is pending If the CT of the head the is negative for bleed then the recommended starting him on aspirin 81 mg for secondary stroke prophylaxis. The patient is on Lipitor 80 mg daily at bedtime. Other neurological perspective can be decreased to 40 mg for second stroke prophylaxis Continue neuro checks Cardiac monitoring PT OT and [facility] FR[facility] are consulted Recommend systolic blood pressure to be less than 180 and diastolic less than 105 for IV thrombolytic protocol. Patient was notified that that because of his repeated episode of unresponsiveness that the per [place] law to avoid driving for 6 month until no further episodes, avoid heights, avoids heights or using heavy machinery. We'll attempt to interrogate the pacemaker. We'll defer the rest of the medical management to primary team For DVT prophylaxis use SCDs. Plan discussed with the patient, his primary attending and his nurse Thank you for the consultation Time with Patient: Greater than 30
--- NOTE | 2023-04-08 12:43 | CA ---
Transthoracic Echo Report Name: Bryan Arambula Age: 47 Gender: M : 1975 Exam Date: 04/08/2023 07:59 Exam Location: [facility] Ht (in): 65 Wt (lb): 260 Ordering Physician: Angela Be DO Attending/Referring Phys: [id number], [place] Senior [employer] Web Developer Talia Burkett RDCS Procedure CPT: Indications: Thrombus Cardiac Hx: Technical Quality: Technically difficult study Contrast 1: Definity Total Dose (mL): 2 Contrast 2: Total Dose (mL): MEASUREMENTS (Male / Female) Normal Values 2D ECHO LV Diastolic Diameter PLAX 4.2 cm 4.2 - 5.9 / 3.9 - 5.3 cm LV Systolic Diameter PLAX 2.6 cm IVS Diastolic Thickness 1.4 cm 0.6 - 1.0 / 0.6 - 0.9 cm LVPW Diastolic Thickness 1.3 cm 0.6 - 1.0 / 0.6 - 0.9 cm LV Relative Wall Thickness 0.6 RV Internal Dim ED PLAX 3.8 cm LA Volume 56.5 cm??? 18 - 58 / 22 - 52 cm??? LA Volume Index 23.6 cm???/m??? 16 - 28 cm???/m??? M-MODE Aortic Root Diameter MM 3.6 cm LA Systolic Diameter MM 3.6 cm LA Ao Ratio MM 1.0 AV Cusp Separation MM 2.5 cm DOPPLER AV Peak Velocity 115.3 cm/s AV Peak Gradient 5.3 mmHg AV Mean Velocity 87.1 cm/s AV Mean Gradient 3.3 mmHg AV Velocity Time Integral 27.2 cm LVOT Peak Velocity 90.0 cm/s LVOT Peak Gradient 3.2 mmHg LVOT Velocity Time Integral 21.7 cm MV Area PHT 3.2 cm??? Mitral E Point Velocity 79.9 cm/s Mitral A Point Velocity 59.6 cm/s Mitral E to A Ratio 1.3 MV Deceleration Time 238.6 ms MV E' Velocity 8.8 cm/s Mitral E to MV E' Ratio 9.1 TR Peak Velocity 212.8 cm/s TR Peak Gradient 18.1 mmHg Right Ventricular Systolic Press 22.3 mmHg FINDINGS Left Ventricle Mildly increased left ventricular wall thickness. Left ventricular cavity size normal. Normal left ventricular systolic function with no obvious regional wall motion abnormalities. Left ventricular ejection fraction is estimated at 55-60 %. Right Ventricle Mild right ventricular dilatation. Right ventricular systolic pressure within normal limits. Right Atrium Normal right atrial size. Catheter/pacemaker wire in the right atrial cavity. Left Atrium Normal left atrial size. Mitral Valve Structurally normal mitral valve. No mitral stenosis, regurgitation or prolapse. Aortic Valve No aortic valve stenosis or regurgitation. Tricuspid Valve Structurally normal tricuspid valve. Mild tricuspid regurgitation. Pulmonic Valve Structurally normal pulmonic valve. Pericardium No pericardial effusion. Aorta Normal size aortic root and proximal ascending aorta. CONCLUSIONS Left ventricular ejection fraction 55-60% Mild increased left ventricular wall thickness Technically difficult study No mitral regurgitation Mild tricuspid regurgitation Previewed by: Dr. Victor Hugo Riley DO (Electronically Signed) Final Date: 08 April 2023 12:42
[2023-04-08] MEDS: BUTALB/APAP/CAFF 50-325-40MG TAB PO PRN (14:14)
--- NOTE | 2023-04-08 14:24 | P.PN ---
Subjective Progress Note Date: 04/08/23 Patient is a 47-year-old male with known GERD, hypertension, bradycardia status post permanent pacemaker, and osteoarthritis who presented to the emergency department with complaints of syncopal episode, headache, slurred speech, and left-sided weakness. On arrival to the emergency department his NIH was 9. Initial vital signs were within normal limits. Laboratory analysis included CBC, coags, CMP, CK, and troponin which were remarkable for white blood cell count 15.7, carbon dioxide 19, and glucose of 135. CT brain showed no acute intracranial process. CTA of the head and neck demonstrated no significant abnormalities. Code stroke was activated. Dr. Ty to the emergency depa rtment physician spoke with neurointensivist who did recommend tenecteplase which was administered patient had resolution of symptoms within 90 seconds. Arrangements were made for admission to the ICU. After admission his headache reoccurred and he was slightly hypertensive. He was given a dose of labetalol. Overnight he had recurrent episodes of staring off into space. Patient seen and examined at bedside with Dr. Bean. He continues to have a headache. He denies any other symptoms. Per nursing he is still having episodes where he stares off into space. They have been unable to obtain pacemaker interrogation. Dr. Vu insisted he was consulted on the patient. Vital signs reviewed General: Nontoxic, no distress, appears at stated age Cardiovascular: S1S2 reg, no murmur Lungs: CTA bilateral, no rhonchi, no rales, no accessory muscle use Abdominal: Soft, nontender to palpation, no guarding Ext: No gross muscle atrophy, no edema b/l lower extremities, no contractures Neuro: CN II-XI grossly intact, weakness left upper extremity Psych: Alert, oriented, appropriate affect Assessment/Plan: Episode of unresponsiveness associated with difficulty speaking and left sided facial droop and weakness. -Neurologic symptoms improved in ER after administration of TNK per emergency department physician -Possible etiologies do include stroke versus seizure with Chip's paralysis versus complex migraine versus pacemaker malfunction -Case discussed with neurology at length. Continue with Topamax. Outpatient follow-up with neurology. -Await repeat head CT at 24 hours, patient unable to have MRI due to pacemaker. If that continues to stow stroke then start aspirin 81 mg. -Lipitor 80 mg at night -Pacemaker interrogation, echocardiogram, telemetry -Seizure precautions. Await formal EEG report -Await pacemaker interrogation -Hold lisinopril and allow for 48 hours of permissive hypertension. Follow blood pressures. Treat only for systolic greater than 180 or having received TNK Sick sinus syndrome - s/p PPM GERD - Protonix 40 mg PO daily Nicotine dependence - nicotine patch 21 mcg daily, and nicotine gum 2 mg q 4 hours prn Hx of migraine SHIN Imaging: Repeat head CT demonstrates right inferior frontal acute infarct. Echocardiogram: Ejection fraction 55 to 60% technically difficult study Data Review: Labs reviewed from today include CBC, CMP, A1c, and total cholesterol profile which are unremarkable. DVT prophylaxis: SCDs Anticipated discharge date: Pending Clinical Course Anticipated discharge place: Pending Clinical Course This dictation was prepared using [employer] voice recognition software. Though every attempt is made to correct errors during dictation some may still exist. Objective - Vital Signs Vital signs: Vital Signs Temp 98.0 F 04/08/23 12:00 Pulse 58 L 04/08/23 13:00 Resp 14 04/08/23 13:00 BP 127/79 04/08/23 12:30 Pulse Ox 94 L 04/08/23 13:00 FiO2 Intake & Output 04/07/23 04/08/23 04/08/23 18:59 06:59 18:59 Intake Total 100 1200 700 Output Total 0 1950 900 Balance 100 -750 -200 Weight 117.934 kg 116.5 kg Intake: IV 100 1200 700 Sodium Chloride 0.9% 1, 100 1200 700 000 ml @ 100 mls/hr IV . Q10H NOEL Rx#:[id number] Output: Urine 0 1950 900 Other: Voiding Method Urinal Urinal - Labs CBC & Chem 7: 04/08/23 03:33 04/08/23 03:33 Labs: Abnormal Lab Results - Last 24 Hours (Table) 04/07/23 04/07/23 04/07/23 Range/Units 16:06 16:06 16:06 WBC 15.7 H (3.8-10.6) k/uL Neutrophils # 12.7 H (1.3-7.7) k/uL APTT 20.5 L (22.0-30.0) sec Chloride 108 H (98-107) mmol/L Carbon Dioxide 19 L (22-30) mmol/L Glucose 135 H (74-99) mg/dL POC Glucose (mg/dL) (70-110) mg/dL HDL Cholesterol (40.00-60.00) mg/dL 04/07/23 04/07/23 04/07/23 Range/Units 16:09 17:56 21:20 WBC (3.8-10.6) k/uL Neutrophils # (1.3-7.7) k/uL APTT (22.0-30.0) sec Chloride (98-107) mmol/L Carbon Dioxide (22-30) mmol/L Glucose (74-99) mg/dL POC Glucose (mg/dL) 137 H 171 H 155 H (70-110) mg/dL HDL Cholesterol (40.00-60.00) mg/dL 04/08/23 04/08/23 04/08/23 Range/Units 03:33 06:44 11:15 WBC (3.8-10.6) k/uL Neutrophils # (1.3-7.7) k/uL APTT (22.0-30.0) sec Chloride 111 H (98-107) mmol/L Carbon Dioxide (22-30) mmol/L Glucose (74-99) mg/dL POC Glucose (mg/dL) 111 H 113 H (70-110) mg/dL HDL Cholesterol 29.00 L (40.00-60.00) mg/dL
--- NOTE | 2023-04-08 14:28 | CONS ---
CONSULTATION HISTORY OF PRESENT ILLNESS: This is a 47-year-old gentleman, who is admitted to ICU following his presentation to hospital with CVA. He has history of sick sinus syndrome and has permanent pacemaker. He presented to hospital having had syncope, headache, slurred speech, and left-sided weakness. He was treated with thrombolytics. At the time of my evaluation this morning, he is comfortable at rest. His speech impediment has improved. His lipid profile shows an LDL cholesterol of 88. He had been started on Lipitor and is currently on labetalol. PAST MEDICAL HISTORY: Significant for hypertension and sick sinus syndrome, status post permanent pacemaker. MEDICATIONS: Include; 1. Lisinopril. 2. Prilosec. ALLERGIES: As charted. FAMILY HISTORY: Negative for premature coronary artery disease. SOCIAL HISTORY: Negative for current smoking or EtOH abuse. REVIEW OF SYSTEMS: Unremarkable other than what has been mentioned so far. PHYSICAL EXAMINATION: GENERAL: Comfortable at rest. VITAL SIGNS: Stable. CHEST: Reveals good air entry bilaterally. HEART: Reveals first and second heart sounds. No gallop. No murmur. ABDOMEN: Soft, nontender. EXTREMITIES: Did not reveal any edema. Peripheral pulses are felt. ASSESSMENT AND PLAN: CVA, rule out cardiac source for thromboembolic phenomenon. The patient is in sinus rhythm. His echo is pending at this time and waiting for Neurology evaluation and his nurse is going to find out from the neurologist if they need a CHRIS. If they do, we will go ahead and do it. THERESA / JOEN: [id number] /
[2023-04-08] MEDS ORDERED: KETOROLAC 15 MG/ML 1 ML VIAL IVP STA (15:35)
[2023-04-08] MEDS: KETOROLAC 15 MG/ML 1 ML VIAL IVP ONE (15:41)
[2023-04-08] MEDS: diphenhydrAMINE 50 MG/ML 1 ML VIAL IVP STA (15:42)
[2023-04-08] MEDS: PROCHLORPERAZINE INJ 10 MG/2 ML VIAL IVP STA (15:44)
[2023-04-08 16:29] LABS: Glucose,Whole Blood 112 mg/dL (70-110)
--- NOTE | 2023-04-08 17:08 | CT ---
EXAMINATION TYPE: CT brain wo con DATE OF EXAM: 04/08/2023 COMPARISON: 04/07/2023 HISTORY: 47-year-old male Neuro deficit, acute, stroke suspected. To be done 22-24hrs post TPA infusi on. TECHNIQUE: Examination was done in axial plane without intravenous contrast. Coronal and sagittal r econstructions performed. CT DLP: 1142.4 mGycm Automated exposure control for dose reduction was used. FINDINGS: There is no evidence of acute intracranial hemorrhage, acute ischemic changes, mass, mass-effect, or extra-axial fluid collection. There is no effacement of cerebral sulci or basal subarachnoid cister ns. There is no hydrocephalus. There is no midline shift. Wilson-white matter distinction is preserv ed. Mild mucosal thickening throughout the paranasal sinuses with polyps or mucosal retention cysts measu ring up to 1.5 cm in the maxillary sinuses. Globes are intact. Mastoid air cells are well pneumatized . IMPRESSION: No evolving large vascular territory infarct is identified. No hemorrhagic transformation, midline sh ift, or hydrocephalus. No acute intracranial abnormality seen. Mild to moderate chronic ethmoid sinus disease.
[2023-04-08 21:20] LABS: Glucose,Whole Blood 86 mg/dL (70-110)
[2023-04-08] MEDS: ATORVASTATIN 80 MG TAB PO SCH (21:23)
--- NOTE | 2023-04-09 00:13 | EEG ---
ELECTROENCEPHALOGRAM REPORT CLINICAL HISTORY: This a 47-year-old gentleman with a syncopal episode. The video EEG is obtained to evaluate for seizure epileptiform activity. RELEVANT MEDICATIONS: 1. Keppra. 2. Topamax. 3. Ativan. EEG TYPE: A routine 21-channel EEG with video using the 10/20 electrode placement system. DESCRIPTION: Wakefulness is obtained. During awake state, the posterior-dominant rhythm consists of [id number] voltage of 9 to 9.5 hertz activity that is well modulated and well sustained. There is no physiological stage 2 sleep architecture. There is no focal slowing. Interictal and ictal is none. ACTIVATION PROCEDURE: Photic stimulation was performed up to 6 hertz, but aborted because the patient was having headaches and could not tolerate the photic stimulation. With limitation of photic stimulation, no abnormality noted. Hyperventilation is not performed. CLINICAL INTERPRETATION: This is a normal routine EEG. There is no focal slowing, epileptiform discharge, or seizure on the EEG. A normal routine EEG does not rule out underlying epilepsy. Clinical correlation is recommended. THERESA / JOEN: [id number] / SEAMUS
[2023-04-09 06:07] LABS: Glucose,Whole Blood 125 mg/dL (70-110)
[2023-04-09 06:20] LABS: HCT 41.7 % (39.0-53.0); HGB 13.9 gm/dL (13.0-17.5); MCH 32.4 pg (25.0-35.0); MCHC 33.4 g/dL (31.0-37.0); MCV 96.9 fL (80.0-100.0); Mean Platelet Volume 7.4; Platelet Count 164 k/uL (150-450); RBC 4.31 m/uL (4.30-5.90); RDW 12.6 % (11.5-15.5); WBC 7.7 k/uL (3.8-10.6)
[2023-04-09 06:35] LABS: African American GFR (CKD) >90 (>60 ml/min/1.73 sqM); Anion Gap 6 mmol/L; Blood Urea Nitrogen 8 mg/dL (9-20); Calcium 8.6 mg/dL (8.4-10.2); Carbon Dioxide 17 mmol/L (22-30); Chloride 117 mmol/L (98-107); Glucose 122 mg/dL (74-99); Non-African American GFR(CKD) 78 (>60 ml/min/1.73 sqM); Sodium 140 mmol/L (137-145)
[2023-04-09 09:06] VITALS: BP 141/81; PULSE 49; RESP 17; TEMP 97.6
[2023-04-09] MEDS: KETOROLAC 15 MG/ML 1 ML VIAL IVP PRN (09:21)
--- NOTE | 2023-04-09 11:15 | P.PN ---
Subjective Progress Note Date: 04/09/23 Principal diagnosis: Acute ischemic CVA status post tPA I am seeing this patient in new consultation today April 08, 2023 after he presented with CVA-like symptoms, was administered fibrinolytics, and is currently being monitored in the intensive care unit. Patient is a 47-year-old white male with past medical history significant for hypertension, bradycardia with permanent pacemaker, GERD, and osteoarthritis. He currently smokes 1/2 pack of cigarettes per day. I am told, the patient is fairly noncompliant with his blood pressure medication. He will miss several doses per week. He has no personal history of CVA. He has significant family history of stroke, his mother in her 50s from massive stroke. Patient presented to the emergency room yesterday at 1558 with acute CVA-like symptoms that reportedly started at 1515. 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 There were some vision changes. He called his ,, and EMS was alerted to the scene. Patient reportedly had slurred speech and significant le ft-sided hemiplegia. A code stroke was activated. Initial NIH was scored at 9. Initial brain CT did not show any acute intracranial process. No hemorrhage or mass effect. Brain CTA did not show any significant stenosis, occlusion, or sizable aneurysm. Patient was given tenecteplase. CBC on arrival: WC count 15.7, hemoglobin 17, hematocrit 49.4, platelets 189. Coagulation profile includes a PT of 10.4, INR 0.9, and APTT 20.5. BMP on arrival: Sodium 138, potassium 3.7, chloride 108, serum bicarb 19, BUN 11, creatinine 0.93, glucose 135. Normal saline is infusing at 100 MLS per hour. Troponin is less than 0.012. Patient is currently in the intensive care unit, post fibrinolytics. He is drowsy, but oriented x 3. Earlier, he reportedly had right upper extremity tremors, felt to be seizure-like activity. His mentation was also altered. No loss of bladder or bowel incontinence. Time was not recorded. Patient was given a dose of Ativan and started on Topamax by medical neurologist. No further seizure-like activity reported and nothing noted on my examination. Patient was sent down for repeat brain CT which demonstrated a right inferior frontal lobe acute infarct without bleed or mass effect. Patient has questionable history of seizures, and was previously on Keppra. He was not loaded with Keppra in the emergency room prior to admission to the ICU. Patient continues to have notable left sided hemiplegia. He may have chronic left upper extremity weakness from a "pinched nerve", and we are unsure if this is his baseline. Dysarthria seems to be improved. Blood pressure is normotensive. Heart rhythm is normal sinus rhythm around 70 bpm. He is on room air. He is lying in bed in no acute distress. Vital signs are stable. Patient was seen and evaluated today on 04/09/2023, remains in the ICU, patient is doing great. Patient is back to baseline neurologically, denies any difficulty with the speech, denies any change neurologically from his baseline. He does have chronic left upper extremity weakness, not related to his recent CVA. Patient is hemodynamically stable, denies any pain, denies any shortness of breath, denies any palpitations, he does have intermittent headaches, being addressed by neurology on the case. CBC is normal basic metabolic profile is normal BUN is 8 creatinine 1.12 bicarb is a bit low at [address] done yesterday showed no significant findings. No evidence of infarct, and no intracranial abnormality Objective - Vital Signs Vital signs: Vital Signs Temp 97.6 F 04/09/23 08:00 Pulse 49 L 04/09/23 08:30 Resp 17 04/09/23 08:30 BP 141/81 04/09/23 08:30 Pulse Ox 95 04/09/23 08:30 FiO2 Intake & Output 04/08/23 04/09/23 04/09/23 18:59 06:59 18:59 Intake Total 1680 1100 700 Output Total 2600 900 600 Balance -920 200 100 Weight 117.8 kg Intake: IV 1200 1100 200 Sodium Chloride 0.9% 1, 1200 1100 200 000 ml @ 100 mls/hr IV . Q10H NOEL Rx#:[id number] Oral 480 500 Output: Urine 2600 900 600 Other: Voiding Method Urinal Urinal Urinal - Exam General: The patient is awake and alert, in no distress, and does not appear acutely ill. Skin: Skin is warm and dry and no rashes or lesions are noted. Eye: Pupils are equal, round and reactive to light, extra-ocular movements are intact; there is normal conjunctiva bilaterally. Ears, nose, mouth and throat: There are moist mucous membranes and no oral lesions. Neck: The neck is supple, there is no tenderness or JVD. Cardiovascular: There is a regular rate and rhythm. No murmur, rub or gallop is appreciated. Respiratory: Clear bilaterally no crackles rhonchi or wheezes Gastrointestinal: Soft, non-distended, non-tender abdomen without masses or organomegaly noted. There is no rebound or guarding present. Bowel sounds are unremarkable. Back: There is no tenderness to palpation in the midline. There is no obvious deformity. Musculoskeletal: Normal ROM, no tenderness, There is no pedal edema. There is no calf tenderness or swelling. No cords were appreciated. Neurological: Alert and oriented x 3, no gross focal neurologic deficit. Except for chronic left upper extremity weakness 3 out of 5 strength. Psychiatric: Normal mood, affect and no mental status examination - Labs CBC & Chem 7: 04/09/23 05:36 04/09/23 05:36 Labs: Abnormal Lab Results - Last 24 Hours (Table) 04/08/23 04/08/23 04/09/23 Range/Units 11:15 16:26 05:36 Chloride 117 H (98-107) mmol/L Carbon Dioxide 17 L (22-30) mmol/L BUN 8 L (9-20) mg/dL Glucose 122 H (74-99) mg/dL POC Glucose (mg/dL) 113 H 112 H (70-110) mg/dL 04/09/23 Range/Units 06:06 Chloride (98-107) mmol/L Carbon Dioxide (22-30) mmol/L BUN (9-20) mg/dL Glucose (74-99) mg/dL POC Glucose (mg/dL) 125 H (70-110) mg/dL Assessment and Plan Assessment: Impression: Acute CVA, status/post tenecteplase infusion. Most recent brain CT identified a right inferior frontal lobe acute infarct without bleed or mass effect. Follow- up CT of the brain is negative Possible seizure, patient reportedly has history of seizure disorder and was previously on Keppra History of sick sinus syndrome, status post permanent pacemaker insertion History of hypertension, with questionable medication compliance Chronic left upper extremity weakness GERD without esophagitis Chronic ongoing tobacco dependence Recommendation: Continue present treatment plan Transfer patient out of the ICU to regular medical floor Continue statins Continue subcu heparin Continue nicotine patch Continue Topamax We will continue to follow Time with Patient: Less than 30
[2023-04-09 11:51] LABS: Glucose,Whole Blood 122 mg/dL (70-110)
[2023-04-09] MEDS: ASPIRIN 81 MG PO SCH (11:59)
[2023-04-09] MEDS: HEPARIN SODIUM,PORCINE 5,000 UNIT/ML 1 ML VIAL SQ SCH (11:59)
--- NOTE | 2023-04-09 13:34 | P.DS ---
Providers Date of admission: 04/07/23 17:03 Expected date of discharge: 04/09/23 Attending physician: Angela Be DO Consults: 04/07/23 17:00 Consult Physician Routine Consulting Provider: Je Bean Consult Reason/Comments: CVA Do you want consulting provider notified?: Yes Consult Physician Routine Consulting Provider: Brigid Quinones Consult Reason/Comments: CVA Do you want consulting provider notified?: Yes Primary care physician: [facility] Hospital Course: Discharge Diagnosis: Episode of unresponsiveness associated with difficulty speaking and left sided facial droop and weakness. Probable complex migraine, less likely seizure or CVA Sick sinus syndrome GERD Nicotine dependence Hx of migraine SHIN Hospital Course: Patient is a 47-year-old male with known GERD, hypertension, bradycardia status post permanent pacemaker, and osteoarthritis who presented to the emergency department with complaints of syncopal episode, headache, slurred speech, and left-sided weakness. On arrival to the emergency department his NIH was 9. Initial vital signs were within normal limits. Laboratory analysis included CBC, coags, CMP, CK, and troponin which were remarkable for white blood cell count 15.7, carbon dioxide 19, and glucose of 135. CT brain showed no acute intracranial process. CTA of the head and neck demonstrated no significant abnormalities. Code stroke was activated. Dr. Ty to the emergency department physician spoke with neurointensivist who did recommend tenecteplase which was administered patient had resolution of symptoms within 90 seconds. Arrangements were made for admission to the ICU. After admission his headache reoccurred and he was slightly hypertensive. He was given a dose of labetalol. Overnight he had recurrent episodes of staring off into space. EEG came back normal. Repeat head CT at 24 hours showed no acute infarct or evolving vascular injury. Patient unable to have MRI due to permanent pacemaker. Echocardiogram came back with ejection fraction 55 to 60% with mildly increased left ventricular wall thickness. Patient continues to do well. Case was discussed extensively with neurology. Was felt that patient likely had complex migraine versus seizure and less likely stroke. Patient had no more episodes of unresponsiveness and was subsequently determined stable for discharge home. Follow-up: New medications include aspirin, Topamax, and Lipitor. Topamax please continue with 50 mg (1 tablet) oral twice daily for the next 5 days you thne nan increase to 100 mg (2 tablets) oral twice daily Follow-[facility] with your primary [facility] provider. Please also follow-up with neurology through the [facility] system. Due to your episode of unresponsiveness that the per [place] law to avoid driving for 6 month until no further episodes, avoid heights, avoids heights or using heavy machinery. Patient seen and examined at bedside. Doing well. Headache much improved. No recurrent symptoms. Vital signs reviewed and stable. General: Nontoxic, no distress, appears at stated age Cardiovascular: S1S2 reg, no murmur, positive posterior tibial pulse bilateral, Lungs: CTA bilateral, no rhonchi, no rales, no accessory muscle use Abdominal: Soft, nontender to palpation, no guarding, no appreciable organomegaly Ext: No gross muscle atrophy, no edema b/l lower extremities, no contractures Neuro: CN II-XI grossly intact, no focal neuro deficits Psych: Alert, oriented, appropriate affect A total of 45 minutes of time were spent preparing this complex discharge summary. Patient was discharged on 04/09/2023. This dictation was prepared using [employer] voice recognition software. Though every attempt is made to correct errors during dictation some may still exist. Patient Condition at Discharge: Stable Plan - Discharge Summary Discharge Rx Participant: Yes New Discharge Prescriptions: New Aspirin 81 mg PO DAILY #30 tab Atorvastatin Calcium [Lipitor] 40 mg PO DAILY #30 tab Topiramate [Topamax] 100 mg PO BID #120 tablet Continue lisinopriL 40 mg PO DAILY Omeprazole Magnesium [PriLOSEC OTC] 40 mg PO DAILY Discharge Medication List Omeprazole Magnesium [PriLOSEC OTC] 40 mg PO DAILY 04/07/23 [History] lisinopriL 40 mg PO DAILY 04/07/23 [History] Aspirin 81 mg PO DAILY #30 tab 04/09/23 [Rx] Atorvastatin Calcium [Lipitor] 40 mg PO DAILY #30 tab 04/09/23 [Rx] Topiramate [Topamax] 100 mg PO BID #120 tablet 04/09/23 [Rx] Follow up Appointment(s)/Referral(s): None,Stated [REFERRING] - 1-2 days Patient Instructions/Handouts: Ischemic Stroke (GEN) Activity/Diet/Wound Care/Special Instructions: Activity: As tolerated Diet: heart healthy Special Instructions: Topamax please continue with 50 mg (1 tablet) oral twice daily for the next 5 days you thne nan increase to 100 mg (2 tablets) oral twice daily Follow-up with your primary [facility] provider. Please also follow-up with neurology through the [facility]. Due to your episode of unresponsiveness that the per [place] law to avoid driving for 6 month until no further episodes, avoid heights, avoids heights or using heavy machinery. Discharge Disposition: HOME SELF-CARE
--- NOTE | 2023-04-09 14:14 | P.PN ---
Subjective Progress Note Date: 04/09/23 I am following-up with the patient and he feels back to baseline. He has old left upper extremity weakness that is old from prior surgery when placing pacemaker. Otherwise no new neurological issues. No further seizure-like activity. Headache is improved. Objective - Vital Signs Vital signs: Vital Signs Temp 97.6 F 04/09/23 08:00 Pulse 49 L 04/09/23 08:30 Resp 17 04/09/23 08:30 BP 141/81 04/09/23 08:30 Pulse Ox 95 04/09/23 08:30 FiO2 Intake & Output 04/08/23 04/09/23 04/09/23 18:59 06:59 18:59 Intake Total 1680 1100 700 Output Total 2600 900 600 Balance -920 200 100 Weight 117.8 kg Intake: IV 1200 1100 200 Sodium Chloride 0.9% 1, 1200 1100 200 000 ml @ 100 mls/hr IV . Q10H NOEL Rx#:[id number] Oral 480 500 Output: Urine 2600 900 600 Other: Voiding Method Urinal Urinal Urinal - Exam GENERAL: The patient is sitting in a recliner chair and is not in acute distress. NEUROLOGICAL: Higher mental function: The patient is awake, alert, oriented to self, place and time. Patient is following commands. No aphasia and no neglect. Cranial nerves: The pupils are round, equal and reactive to light. Visual christensen are full to confrontation throughout. Extraocular movement is intact no nystagmus is noted. Facial sensation is normal to touch throughout. The facial strength is normal throughout. No dysarthria is noted Motor: The strength is left upper extremity is 4+. Otherwise 5 over 5 throughout. Normal tone and bulk. Cerebellum: Normal finger to nose bilaterally. Sensation: Sensation is normal to touch throughout. . Some of the workup during his hospital visit consisted of hemoglobin A1c is 5.7 Lipid panel is triglycerides 104, cholesterol is 13, LDLs [address] of the head is reported as no acute intracranial process. Follow-up MRI can be performed as clinically indicated. I personally reviewed the CT head CT angiography of the head and neck is reported as no significant abnormality seen EKG is reported as sinus rhythm. Possible right atrial enlargement. Low QRS voltage in the pericardial leads. Repeat CT of the head because of recurrent symptoms was reported as right inferior frontal lobe acute infarct without bleed or mass effect. I personally reviewed the CT and I had a hard time appreciating acute and subacute ischemia. 24 hours post IV thrombolytics: It is reported as no evolving large vascular territory infarct is identified. No hemorrhagic transformation, midline shift or hydrocephalus. No acute intracranial abnormality seen. Mild to moderate chronic ethmoid sinus disease. Routine EEG: Normal. 2D echo: It is reported as left ventricular ejection fraction 55-60%. Mild increased left ventricular wall thickness. Technically difficult study - Labs CBC & Chem 7: 04/09/23 05:36 04/09/23 05:36 Labs: Abnormal Lab Results - Last 24 Hours (Table) 04/08/23 04/09/23 04/09/23 Range/Units 16:26 05:36 06:06 Chloride 117 H (98-107) mmol/L Carbon Dioxide 17 L (22-30) mmol/L BUN 8 L (9-20) mg/dL Glucose 122 H (74-99) mg/dL POC Glucose (mg/dL) 112 H 125 H (70-110) mg/dL 04/09/23 Range/Units 11:50 Chloride (98-107) mmol/L Carbon Dioxide (22-30) mmol/L BUN (9-20) mg/dL Glucose (74-99) mg/dL POC Glucose (mg/dL) 122 H (70-110) mg/dL Assessment and Plan Assessment: This is a 47-year-old gentleman who presented emergency department on 04/07/2023 for a left-sided weakness, slurred speech, headache and syncopal episode. NIH stroke scale per the ED is 9. Patient received IV thrombolytic. She had had multiple episode of staring off with looking upwards and there was a concern for seizure. He has chronic history of unresponsiveness and had a prolonged EEG and [facility] was told the EEG was negative for any seizures or discharges according to patient. [facility] team since not helping according to patient. He continues to have frequent headaches. Episode of expressive aphasia, dysarthria, left-sided weakness with headache and syncopal episode. Then had multiple episode of staring off with looking upwards: Possible due to seizure with Chip paralysis versus complicated migraine versus acute ischemic stroke---CT head is negative for acute process. Routine EEG is normal. Chronic unresponsiveness episodes and had a prolonged [facility] team according to the patient and was notified no seizure discharges Possible comp get migraine History of bradycardia status post operative pacemaker Plan: He was started on Topamax 50 mg twice a day which can help what with both migraine as well as seizures. In a week go up to 2 tab bid (100mg bid). Patient was notified of the side effects of memory issues, the paresthesia, renal and visual issues as well. I started the patient on ASA 81mg daily. No need dual antiplatelets at this time since uncertain if truly a stroke vs migraine vs ?seizure. Cannot perform MRI since has pacemaker. Is on Lipitor 80mg qhs started by primary team and from neurological perspective can be decreased to 40 mg for second stroke prophylaxis Continue neuro checks Cardiac monitoring PT OT and CORPORATE EVENT PLANNER are consulted Patient was notified that that because of his repeated episode of unresponsivene ss that the per [place] law to avoid driving for 6 month until no further episodes, avoid heights, avoids heights or using heavy machinery. We'll attempt to interrogate the pacemaker. We'll defer the rest of the medical management to primary team For DVT prophylaxis: started subq heparin 5000U every 12 hours. Recommend the patient to continue following-up with his neurologist over at [facility] within 2 weeks. Plan discussed with the patient, his via phone and his primary attending. Otherwise, no additional neurological work-up. Time with Patient: Less than 30
== END 2023-04-09 14:44 | disposition home or self-care (01) | DRG 103 ==
LOC: EC 15:58 → 2SICU 17:03
PROVIDERS: ADMIT Internal Medicine; ATTEND Internal Medicine
DX: G43.109 Migraine with aura, not intractable, without status migrainosus (principal); G81.94 Hemiplegia, unspecified affecting left nondominant side; R47.01 Aphasia; I49.5 Sick sinus syndrome; E11.9 Type 2 diabetes mellitus without complications; I69.334 Monoplegia of upper limb following cerebral infarction affecting left non-dominant side; I10 Essential (primary) hypertension; Z28.310 Unvaccinated for COVID-19; K21.9 Gastro-esophageal reflux disease without esophagitis; M19.90 Unspecified osteoarthritis, unspecified site; M54.9 Dorsalgia, unspecified; R47.1 Dysarthria and anarthria; R29.810 Facial weakness; R25.1 Tremor, unspecified; F17.210 Nicotine dependence, cigarettes, uncomplicated; Z71.6 Tobacco abuse counseling; Z91.148 Patient's other noncompliance with medication regimen for other reason; Z79.899 Other long term (current) drug therapy; Z95.0 Presence of cardiac pacemaker; Z82.3 Family history of stroke; R29.709 NIHSS score 9
CPT/HCPCS: 36415; 70450; 70496; 70498; 71045; 80048; 80053; 80061; 82550; 83036; 83605; 84484; 85025; 85027; 85610; 85730; 93005; 93306; 94760; 95816; 96361; 96365; 96375; 99291

== ENCOUNTER 2023-04-13 20:52 | Emergency (ER) | payer OTHER, BC ==
[2023-04-13 21:04] VITALS: TEMP 97.7
[2023-04-13] MEDS: MORPHINE SULFATE 4 MG/ML SYRINGE IV STA (21:16)
--- NOTE | 2023-04-13 21:27 | ED ---
General Adult HPI - General Chief complaint: Chest Pain Stated complaint: chest pain SOB had stroke last friday Time Seen by Provider: 04/13/23 21:00 Source: patient Mode of arrival: ambulatory Limitations: no limitations - History of Present Illness Initial comments: Dictation was produced using [employer] dictation software. please excuse any grammatical, word or spelling errors. Chief Complaint: 47-year-old male presents with right-sided chest pain History of Present Illness: Patient is a 47-year-old male presents with sharp right-sided chest pain ongoing for the last couple hours. Patient was allegedly just discharged from hospital 3 to 4 days ago for CVA. Patient was at home in his usual state health when all of a sudden he started having sharp severe pain to his right chest. at the bedside states that it seems musculoskeletal. Patient states that it seems rather severe. States that hurts when he tries to take a deep breath. Denies any cough. No fever chills or night sweats. The ROS documented in this emergency department record has been reviewed and confirmed by me. Those systems with pertinent positive or negative responses have been documented in the HPI. All other systems are other negative and/or noncontributory. - Related Data Home Medications Medication Instructions Recorded Confirmed Omeprazole Magnesium [PriLOSEC OTC] 40 mg PO DAILY 04/07/23 04/07/23 lisinopriL 40 mg PO DAILY 04/07/23 04/07/23 Previous Rx's Medication Instructions Recorded Aspirin 81 mg PO DAILY #30 tab 04/09/23 Atorvastatin Calcium [Lipitor] 40 mg PO DAILY #30 tab 04/09/23 Topiramate [Topamax] 100 mg PO BID #120 tablet 04/09/23 Allergies Allergy/AdvReac Type Severity Reaction Status Date / Time adhesive tape Allergy Rash/Hives Verified 04/07/23 17:10 Review of Systems ROS Statement: Those systems with pertinent positive or pertinent negative responses have been documented in the HPI. ROS Other: All systems not noted in ROS Statement are negative. Past Medical History Past Medical History: CVA/TIA, GERD/Reflux, Hypertension, Musculoskeletal Disorder, Osteoarthritis (OA) Additional Past Medical History / Comment(s): sick sinus syndrome, chronic left arm weakness, migraine SHIN. Hx-"broken back" pt states high bp d/t back pain per physicians. History of Any Multi-Drug Resistant Organisms: None Reported Past Surgical History: Cholecystectomy, Pacemaker, Tonsillectomy Past Anesthesia/Blood Transfusion Reactions: No Reported Reaction Type of Cardiac Device: Permanent Pacemaker Device Placement Date:: 10/30 Past Psychological History: No Psychological Hx Reported Smoking Status: Current every day smoker Past Alcohol Use History: Occasional Past Drug Use History: None Reported - Past Family History Father Family Medical History: Hypertension Mother Family Medical History: CVA/TIA, Diabetes Mellitus, Hypertension Additional Family Medical History / Comment(s): CABG. General Exam - General Exam Comments Initial Comments: PHYSICAL EXAM: General Impression: Alert and oriented x3, acute distress secondary to pain HEENT: Normocephalic atraumatic, extra-ocular movements intact, pupils equal and reactive to light bilaterally, mucous membranes moist. Cardiovascular: Heart regular rate and rhythm Chest: Able to complete full sentences, no retractions, no tachypnea, palpatory tenderness to the right chest muscle wall Abdomen: abdomen soft, non-tender, non-distended, no organomegaly Musculoskeletal: Pulses present and equal in all extremities, no peripheral edema Motor: no focal deficits noted Neurological: CN II-XII grossly intact, no focal motor or sensory deficits noted Skin: Intact with no visualized rashes Psych: Normal affect and mood Limitations: no limitations Course Vital Signs 04/13/23 04/13/23 04/13/23 20:54 21:09 21:20 Temperature 97.7 F Pulse Rate 83 79 81 Respiratory 28 H 22 22 Rate Blood Pressure 121/92 159/111 144/72 O2 Sat by Pulse 98 97 97 Oximetry 04/13/23 22:37 Temperature Pulse Rate 68 Respiratory 19 Rate Blood Pressure 113/79 O2 Sat by Pulse 97 Oximetry EKG Findings - EKG Comments: EKG Findings:: My EKG interpretation: Ventricular rate 81, sinus rhythm,. 164, cures 90, QTc 381. No IA prolongation, no QTC prolongation, no ST or T-wave changes noted. EKG compared to April 07, 2023 showing no changes. Overall, this EKG is unremarkable Medical Decision Making - Medical Decision Making Was pt. sent in by a medical professional or institution (, PA, COMMERCIAL FOOD INSTRUCTOR, urgent care, hospital, or shelter...) When possible be specific @ -No Did you speak to anyone other than the patient for history (EMS, parent, family, police, friend...)? What history was obtained from this source @ -No Did you review nursing and triage notes (agree or disagree)? Why? @ -I reviewed and agree with nursing and triage notes Were old charts reviewed (outside hosp., previous admission, EMS record, old EKG, old radiological studies, urgent care reports/EKG's, shelter records)? Report findings @ -No old charts were reviewed Differential Diagnosis (chest pain, altered mental status, abdominal pain women, abdominal pain men, vaginal bleeding, musculoskeletal, weakness, fever, dyspnea, syncope, headache, dizziness, GI bleed, back pain, seizure, CVA, palpatations, mental health)? @ -Differential Chest Pain: Stable Angina, Unstable Angina, STEMI, NSTEMI Aortic Dissection, Pneumothorax, Musculoskeletal, Esophageal Spasm GERD, Cholecystitis, Pancreatitis, Zoster, this is not meant to be an all-inclusive list. EKG interpreted by me (3pts min.). @ -See above X-rays interpreted by me (1pt min.). @ -Chest x-ray is nonacute CT interpreted by me (1pt min.). @ -None done U/S interpreted by me (1pt. min.). @ -None done What testing was considered but not performed or refused? (CT, X-rays, U/S, labs)? Why? @ -None What meds were considered but not given or refused? Why? @ -None Did you discuss the management of the patient with other professionals (professionals i.e. , PA, COMMERCIAL FOOD INSTRUCTOR, lab, RT, psych nurse, oncology social worker, acid adjuster, teacher, air intelligence officer, caseworker intake)? Give summary @ -No Was smoking cessation discussed for >3mins.? @ -No Was critical care preformed (if so, how long)? @ -No Were there social determinants of health that impacted care today? How? (Homelessness, low income, unemployed, alcoholism, drug addiction, transportation, low edu. Level, literacy, decrease access to med. care, [facility], rehab)? @ -No Was there de-escalation of care discussed even if they declined (Discuss DNR or withdrawal of care, Hospice)? DNR status @ -No What co-morbidities impacted this encounter? (DM, HTN, Smoking, COPD, CAD, Cancer, CVA, ARF, Chemo, Hep., AIDS, mental health diagnosis, sleep apnea, morbid obesity)? @ -None Was patient admitted / discharged? Hospital course, mention meds given and route, prescriptions, significant lab abnormalities, going to OR and other pertinent info. @ -47-year-old male with musculoskeletal chest pain. His pain is reproducible at the bedside. Vital signs stable. Patient's pain is very atypical for acute coronary syndrome or any life-threatening cardiac process. Vital signs stable. Laboratory evaluation is unremarkable. D-dimer and troponin are negative. Patient treated with analgesics with improvement of symptoms. Patient discharged. Return precautions explained and understood. Patient discharged w ith p.o. analgesics. Undiagnosed new problem with uncertain prognosis? @ -No Drug Therapy requiring intensive monitoring for toxicity (Heparin, Nitro, Insulin, Cardizem)? @ -No Were any procedures done? @ -No Diagnosis/symptom? Acute, or Chronic, or Acute on Chronic? Uncomplicated (without systemic symptoms) or Complicated (systemic symptoms)? @ -Acute chest strain Side effects of treatment? @ -No Exacerbation, Progression, or Severe Exacerbation? @ -No Poses a threat to life or bodily function? How? (Chest pain, [place], [place], pneumonia, PE, COPD, DKA, ARF, appy, cholecystitis, CVA, Diverticulitis, Homicidal, Suicidal, threat to staff... and all critical care pts) @ -No - Lab Data Result diagrams: 04/13/23 21:20 04/13/23 21:20 Lab Results 04/13/23 04/13/23 04/13/23 Range/Units 21:20 21:20 21:20 WBC 10.8 H (3.8-10.6) k/uL RBC 5.06 (4.30-5.90) m/uL Hgb 16.4 (13.0-17.5) gm/dL Hct 47.2 (39.0-53.0) % MCV 93.5 (80.0-100.0) fL MCH 32.4 (25.0-35.0) pg MCHC 34.7 (31.0-37.0) g/dL RDW 13.0 (11.5-15.5) % Plt Count 200 (150-450) k/uL MPV 7.9 Neutrophils % 55 % Lymphocytes % 33 % Monocytes % 6 % Eosinophils % 3 % Basophils % 1 % Neutrophils # 5.9 (1.3-7.7) k/uL Lymphocytes # 3.5 (1.0-4.8) k/uL Monocytes # 0.6 (0-1.0) k/uL Eosinophils # 0.4 (0-0.7) k/uL Basophils # 0.1 (0-0.2) k/uL PT (10.0-12.5) sec INR (<1.2) APTT (22.0-30.0) sec D-Dimer (<0.60) mg/L FEU Sodium 141 (137-145) mmol/L Potassium 4.3 (3.5-5.1) mmol/L Chloride 113 H (98-107) mmol/L Carbon Dioxide 21 L (22-30) mmol/L Anion Gap 7 mmol/L BUN 13 (9-20) mg/dL Creatinine 1.12 (0.66-1.25) mg/dL Est GFR (CKD-EPI)AfAm >90 (>60 ml/min/1.73 sqM) Est GFR (CKD-EPI)NonAf 78 (>60 ml/min/1.73 sqM) Glucose 86 (74-99) mg/dL Plasma Lactic Acid Zach 1.3 (0.7-2.0) mmol/L Calcium 9.4 (8.4-10.2) mg/dL Magnesium 1.9 (1.6-2.3) mg/dL Total Bilirubin 0.8 (0.2-1.3) mg/dL AST 33 (17-59) U/L ALT 35 (4-49) U/L Alkaline Phosphatase 49 (38-126) U/L Troponin I (0.000-0.034) ng/mL Total Protein 7.1 (6.3-8.2) g/dL Albumin 4.2 (3.5-5.0) g/dL 04/13/23 04/13/23 Range/Units 21:20 22:30 WBC (3.8-10.6) k/uL RBC (4.30-5.90) m/uL Hgb (13.0-17.5) gm/dL Hct (39.0-53.0) % MCV (80.0-100.0) fL MCH (25.0-35.0) pg MCHC (31.0-37.0) g/dL RDW (11.5-15.5) % Plt Count (150-450) k/uL MPV Neutrophils % % Lymphocytes % % Monocytes % % Eosinophils % % Basophils % % Neutrophils # (1.3-7.7) k/uL Lymphocytes # (1.0-4.8) k/uL Monocytes # (0-1.0) k/uL Eosinophils # (0-0.7) k/uL Basophils # (0-0.2) k/uL PT 10.4 (10.0-12.5) sec INR 0.9 (<1.2) APTT 22.2 (22.0-30.0) sec D-Dimer 0.40 (<0.60) mg/L FEU Sodium (137-145) mmol/L Potassium (3.5-5.1) mmol/L Chloride (98-107) mmol/L Carbon Dioxide (22-30) mmol/L Anion Gap mmol/L BUN (9-20) mg/dL Creatinine (0.66-1.25) mg/dL Est GFR (CKD-EPI)AfAm (>60 ml/min/1.73 sqM) Est GFR (CKD-EPI)NonAf (>60 ml/min/1.73 sqM) Glucose (74-99) mg/dL Plasma Lactic Acid Zach (0.7-2.0) mmol/L Calcium (8.4-10.2) mg/dL Magnesium (1.6-2.3) mg/dL Total Bilirubin (0.2-1.3) mg/dL AST (17-59) U/L ALT (4-49) U/L Alkaline Phosphatase (38-126) U/L Troponin I <0.012 (0.000-0.034) ng/mL Total Protein (6.3-8.2) g/dL Albumin (3.5-5.0) g/dL Disposition Clinical Impression: Chest pain Disposition: HOME SELF-CARE Condition: Good Instructions (If sedation given, give patient instructions): Chest Pain (ED) Is patient prescribed a controlled substance at d/c from ED?: No Referrals: [facility],Clinic [Primary Care Provider] - 1-2 days Time of Disposition: 23:20
[2023-04-13 21:37] LABS: Basophils # (A) 0.1 k/uL (0-0.2); Basophils % (A) 1 %; Eosinophils # (A) 0.4 k/uL (0-0.7); Eosinophils % (A) 3 %; HCT 47.2 % (39.0-53.0); HGB 16.4 gm/dL (13.0-17.5); Lymphocytes # (A) 3.5 k/uL (1.0-4.8); Lymphocytes % (A) 33 %; MCH 32.4 pg (25.0-35.0); MCHC 34.7 g/dL (31.0-37.0); MCV 93.5 fL (80.0-100.0); Mean Platelet Volume 7.9; Monocytes # (A) 0.6 k/uL (0-1.0); Monocytes % (A) 6 %; Neutrophils # (A) 5.9 k/uL (1.3-7.7); Neutrophils % (A) 55 %; Platelet Count 200 k/uL (150-450); RBC 5.06 m/uL (4.30-5.90); WBC 10.8 k/uL (3.8-10.6)
[2023-04-13 21:51] LABS: ALT 35 U/L (4-49); African American GFR (CKD) >90 (>60 ml/min/1.73 sqM); Albumin 4.2 g/dL (3.5-5.0); Anion Gap 7 mmol/L; Blood Urea Nitrogen 13 mg/dL (9-20); Calcium 9.4 mg/dL (8.4-10.2); Carbon Dioxide 21 mmol/L (22-30); Chloride 113 mmol/L (98-107); Glucose 86 mg/dL (74-99); Non-African American GFR(CKD) 78 (>60 ml/min/1.73 sqM); Sodium 141 mmol/L (137-145); Total Bilirubin 0.8 mg/dL (0.2-1.3); Total Protein 7.1 g/dL (6.3-8.2)
--- NOTE | 2023-04-13 21:53 | XR ---
EXAMINATION TYPE: XR chest 2V DATE OF EXAM: 04/13/2023 9:31 PM CLINICAL INDICATION:Male, 47 years old with history of chest pain; H COMPARISON: Chest radiographs from 04/07/2023 TECHNIQUE: XR chest 2V Frontal and lateral views of the chest. FINDINGS: Lungs/Pleura: There is no evidence of pleural effusion, focal consolidation, or pneumothorax. Pulmonary vascularity: Unremarkable. Heart/mediastinum: Cardiomediastinal silhouette is unremarkable. Two lead cardiac conduction device o verlying the left hemithorax with lead tips projecting over the right ventricle and right atrium. Musculoskeletal: No acute osseous pathology. Other findings: None IMPRESSION: No acute cardiopulmonary disease/process.
[2023-04-13 21:54] LABS: AST 33 U/L (17-59); Alkaline Phosphatase 49 U/L (38-126); Magnesium 1.9 mg/dL (1.6-2.3); Potassium 4.3 mmol/L (3.5-5.1)
[2023-04-13] MEDS: MORPHINE SULFATE 4 MG/ML SYRINGE IVP STA (22:39)
[2023-04-13] MEDS: MORPHINE SULFATE 4 MG/ML SYRINGE IM STA (22:39)
[2023-04-13 22:49] VITALS: RESP 19
[2023-04-13 23:01] LABS: INR 0.9 (<1.2); Partial Thromboplastin Time 22.2 sec (22.0-30.0); Prothrombin Time 10.4 sec (10.0-12.5)
[2023-04-13] MEDS: ACET/COD 300 MG/30 MG STARTER PACK 6 TAB BTL PO STA (23:36)
[2023-04-13] MEDS: LIDOCAINE 4% PATCH TOPICAL ONE (23:37)
[2023-04-13 23:51] VITALS: BP 131/84; PULSE 64
== END 2023-04-13 23:44 | disposition home or self-care (01) ==
LOC: EC 20:52
DX: S29.011A Strain of muscle and tendon of front wall of thorax, initial encounter (principal); K21.9 Gastro-esophageal reflux disease without esophagitis; I10 Essential (primary) hypertension; F17.200 Nicotine dependence, unspecified, uncomplicated; Z79.899 Other long term (current) drug therapy; Z91.09 Other allergy status, other than to drugs and biological substances; X58.XXXA Exposure to other specified factors, initial encounter
CPT/HCPCS: 36415; 93005; 85379; 80053; 83605; 83735; 84484; 85025; 85610; 85730; 71046; 99285; 96374; 96376; J2270

== ENCOUNTER → 2023-05-05 | Day surgery (SDC) | payer BC, OTHER ==
[~2023-05-05] MED LIST changes: -ceFAZolin 1,000 MG in SODIUM CHLORIDE 0.9% IRRIGATIO 250 ML IRRIGATION ONE; -ceFAZolin IN SWFI 2 GM/20 ML SYRINGE IVP ONE; +fentaNYL (PF) 50 MCG/ML 2 ML AMP ONE
[2023-05-05] MEDS: SODIUM CHLORIDE 0.9% 500 ML 500 ML IV ONE (06:30)
[2023-05-05 07:05] VITALS: TEMP 97.6
[2023-05-05] MEDS: BENZOCAINE SPRAY 1 CAN TOPICAL ONE (07:13)
[2023-05-05] MEDS: fentaNYL (PF) 50 MCG/1 ML VIAL IVP ONE ×2 (07:40)
[2023-05-05] MEDS: MIDAZOLAM 2 MG/2 ML VIAL IVP ONE ×3 (07:40→07:42)
--- NOTE | 2023-05-05 07:57 | P.PCN ---
Date of Procedure: 05/05/23 Operative Findings: TRANSESOPHAGEAL ECHOCARDIOGRAM POWER SHEAR OPERATOR: VIJAYA MAN MD, RPVI INDICATION: Rule out cardiac source of embolization SEDATION: Conscious sedation COMPLICATION: None LEVEL OF SEDATION Moderate to sedation length of 16-minute PROCEDURE DESCRIPTION: After obtaining an informed consent, the patient was brought to transesophageal echocardiogram room. Pulse oximetry and heart monitors were attached to the patient. The patient throat was sprayed using lidocaine. The patient was turned into left lateral position. After that a bite guard was placed. After an appropriate conscious sedation was initiated, the transesophageal echocardiogram was advanced through a bite guard into the mid esophagus. A 2-D echocardiogram images, color Doppler images, continuous wave images, pulse-wave images, of various cardiac structure were performed. After that the transesophageal echocardiogram probe was advanced into the stomach and fixed to obtain transgastric view was. The probe was brought into the mid esophagus. Inter-atrial septum was interrogated using 2D images, color Doppler images, and then contrast study. After that transesophageal echocardiogram was withdrawn out and upon withdrawing the descending thoracic aorta all the way up to the arch was evaluated. CONCLUSION: 1. No evidence of cardiac source of embolization 2. Intact interatrial septum with no shunt 3. Normal LV systolic function 4. No significant valvular abnormality 5. The left atrial appendage was not well-visualized
[2023-05-05 09:26] VITALS: BP 101/54; PULSE 52; RESP 16
== END ==
LOC: CATHCVL 06:09
PROVIDERS: ATTEND Internal Medicine Interventional Cardiology
DX: I49.5 Sick sinus syndrome (principal); I10 Essential (primary) hypertension; F17.210 Nicotine dependence, cigarettes, uncomplicated; Z79.899 Other long term (current) drug therapy; Z79.82 Long term (current) use of aspirin
CPT/HCPCS: 93312; 93320; 93325; J2250; J3010